=== PATIENT | female | born 1970 | race Caucasian/White ===

== ENCOUNTER 2016-04-21 18:37 | Emergency (ER) | payer MEDICAID ==
[~2016-04-21] VITALS: Ht 172.7 cm; Wt 91.0 kg
[~2016-04-21 18:37] MED LIST: ALBU8.5H INH; AMOX500C2 PO; CYCL-375 PO; HYDR-4246 PO; IBUP-1264 PO; INDO25CA PO; LANS30CA44 PO; TRAM50TA4 PO
--- OUTSIDE RECORDS SUMMARY | 2016-04-21 18:41 | XMS REPORT ---
Author Author Alison Reagan [facility] eClinicalWorks Address Unknown Phone Unavailable Care Team Providers Care Program Schedule Clerk Name Role Phone Alison Reagan CP Unavailable Allergies, Adverse Reactions, Alerts Substance Reaction Event Type seasonal allergies Info Not Available Non Drug Allergy Problems Problem Type Condition Code Onset Dates Condition Status Assessment Unspecified disorder of left middle ear and mastoid H74.92 Active Assessment Acute vaginitis N76.0 Active Problem Overweight 278.02 Active Problem Cervicalgia 723.1 Active Problem Neurodermatitis 691.8 Active Problem Generalized anxiety disorder F41.1 Active Problem Bipolar disorder, unspecified F31.9 Active Problem Restless legs syndrome [RLS] 333.94 Active Problem Ankylosing spondylitis 720.0 Active Medications Medication Code System Code Instructions Start Date End Date Status Dosage Fexofenadine-Pseudoephed ER [facility] [address]-93 180-240 MG Orally Once a day May 18, 2015 July 17, 2015 1 tablet Nasonex [facility] [address]-68 50 MCG/ACT Nasally Once a day May 18, 2015 2 sprays in each nostril Humira [facility] [address]-01 40 MG/0.8ML Subcutaneous 0.8 Sulfasalazine [facility] [address]-16 500 MG Orally BID 2 tabs Famotidine [facility] [address]-22 40 MG Orally Once a day July 16, 2013 1 tablet at bedtime Diflucan [facility] [address]-74 150 MG Orally x1 May 18, 2015 1 tablet Prevacid [facility] [address]-28 30 MG Orally Once a day 1 capsule before a meal Melatonin [facility] [address]-91 3 MG Orally Once a day PRN Jan 19, 2015 1-2 tablets at bedtime as needed with food Diflucan [facility] [address]-56 150 MG Orally Once a day May 18, 2015 1 tablet Folic Acid [facility] [address]-55 dly not defined Geodon [facility] 24983715218 40 Orally at supper and bedtime (or can take both at bedtime to help with sleep) 1 capsule with food Triamcinolone Acetonide [facility] [address]-42 0.5 % Externally Twice a day August 17, 2014 1 application to affected area Amoxicillin [facility] [address]-22 500 MG Orally every 8 hrs 1 capsule Fluticasone Propionate [facility] [address]-90 50 MCG/ACT Nasally twice a day Dec 03, 2012 1 spray in each nostril Lamotrigine [facility] [address]-69 200 MG Orally every day August 25, 2014 one tablet Clonazepam [facility] [address]-01 1 MG Orally Twice a day Jan 13, 2014 1 tablet Requip [facility] [address]-61 2 MG Orally Once a day 1 tablet 1 to 3 hours before bedtime Triamcinolone Acetonide [facility] [address]-98 0.1 % Externally Twice a day for a week then prn July 01, 2014 1 thin application to affected area Flexeril [facility] 22766904491 10 Orally Once a day 1 tablet ProAir HFA [facility] 54584974835 90 Inhalation every 4 hrs 2 puffs as needed Indomethacin [facility] [address]-83 50 MG Orally Twice a day 1 capsule with food Rhinocort Aqua [facility] [address]-02 32 MCG/ACT Nasally Once a day May 18, 2015 1 spray in each nostril Nystatin [facility] 95859077788 100,000 APPLY TO AFFECTED AREA(S) TWO TIMES A DAY UNTIL RASH HAS BEEN GONE 3 DAYS. Lidocaine-Prilocaine [facility] 41955901413 2.5-2.5 Externally q 12h PRN as directed Procedures Procedure Coding System Code Date OFFICE VISIT, EST-LOW COMPLEXITY (15 MIN.) CPT-4 04352 May 18, 2015 Vital Signs Date/Time: May 18, 2015 Temperature 98.2 F Height 68 in Weight 193.4 lbs Blood Pressure Diastolic 67 mm Hg Blood Pressure Systolic 109 mm Hg Cardiac Monitoring Heart Rate 72 /min BMI 29.40 Index Respiratory Rate 18 /min Results No Known Results Summary Purpose eClinicalWorks Submission
--- OUTSIDE RECORDS SUMMARY | 2016-04-21 18:41 | XMS REPORT | Referral Summary ---
Author Author [facility] Organization [facility] Address Unknown Phone Unavailable Care Team Providers Care Automation Driver Name Role Phone Alison Reagan Primary Care Physician [phone] Encounter [facility] [id number] Date(s): 07/30/14 - 07/30/14 [facility] [address] [place] [address] [place] [address]- Discharge Diagnosis: Epicondylitis, lateral, right Discharge Diagnosis: Ankylosing spondylitis Discharge Diagnosis: Encounter for long-term (current) use of high-risk medication Discharge Diagnosis: Chronic back pain Discharge Disposition: -Home or Self Care Attending Physician: Vivienne Flores MD Admitting Physician: Vivienne Flores MD Referring Physician: Alison Reagan NP Vital Signs Most recent to 1 oldest [Reference Range]: Peripheral Pulse 97 bpm Rate [60-100 bpm] (07/30/14 11:08 AM) Blood Pressure 140/98 mmHg [90-140/60-90 mmHg] (07/30/14 11:08 AM) Problem List Condition Effective Dates Status Health Status Informant ANKYLOSING Active SPONDYLITIS(Confirme d) Anxiety(Confirmed) Active ASTHMA(Confirmed) Active Depression(Confirmed Active ) Obesity(Confirmed) Active patient sexually transmitted Active disease(Confirmed) Tobacco Active patient user(Confirmed) Allergies, Adverse Reactions, Alerts Substance Reaction Severity Status Diclofenac Sodium Active Medications baclofen 10 mg oral tablet See Instructions, TAKE ONE TABLET BY MOUTH THREE TIMES A DAY NEEDED FOR MUSCLE SPASM, # 90 tabs, eRx: [facility] #[id number], TAKE ONE TABLET BY MOUTH THREE TIMES A DAY NEEDED FOR MUSCLE SPASM Start Date: 10/16/14 Status: Ordered clonazePAM See Instructions, 1 by oral route daily, 0 Refill(s) Start Date: 01/15/14 Status: Ordered cyclobenzaprine 10 mg oral tablet 1 tabs, Oral, TID, as needed for spasm, # 30 tabs, 0 Refill(s) Start Date: 07/15/13 Status: Ordered Enbrel 25 mg subcutaneous kit 25 mg 1 Each, SubCutaneous, 2x/Wk, # 4 Each, 0 Refill(s), other reason (Rx) Start Date: 11/17/14 Status: Ordered Enbrel Prefilled Syringe mg, SubCutaneous, 2x/Wk, 0 Refill(s) Start Date: 11/17/14 Status: Ordered Flonase 50 mcg/inh nasal spray sprays, Nasal, Daily, 0 Refill(s) Start Date: 01/15/14 Status: Ordered folic acid 1 mg oral tablet See Instructions, TAKE ONE TABLET BY MOUTH DAILY, # 30 tabs, 10 Refill(s), eRx: [facility] #[id number], TAKE ONE TABLET BY MOUTH DAILY Start Date: 10/30/14 Status: Ordered gabapentin 300 mg oral capsule See Instructions, TAKE ONE CAPSULE BY MOUTH FOUR TIMES A DAY, # 120 caps, eRx: [facility] #[id number], TAKE ONE CAPSULE BY MOUTH FOUR TIMES A DAY Start Date: 08/04/14 Status: Ordered hydrOXYzine 25 mg, QID, 0 Refill(s) Start Date: 04/02/14 Status: Ordered IBU 800 mg oral tablet See Instructions, TAKE ONE TABLET BY MOUTH THREE TIMES A DAY NEEDED FOR PAIN - TAKE WITH FOOD OR MILK., # 90 tabs, eRx: [facility] #[id number], TAKE ONE TABLET BY MOUTH THREE TIMES A DAY NEEDED FOR PAIN - TAKE WITH FOOD OR MILK. Start Date: 10/20/14 Status: Ordered lamoTRIgine 150 mg oral tablet tabs, Oral, Bedtime (once a day), 0 Refill(s) Start Date: 06/04/14 Status: Ordered lidocaine-prilocaine 2.5%-2.5% topical cream david, Topical, Once, 0 Refill(s) Start Date: 07/15/13 Status: Ordered meloxicam 15 mg oral tablet See Instructions, TAKE ONE TABLET BY MOUTH DAILY, # 30 tabs, eRx: [facility] #[id number], TAKE ONE TABLET BY MOUTH DAILY Start Date: 08/04/14 Status: Ordered Prevacid 30 mg oral delayed release capsule 1 caps, Oral, Daily, 0 Refill(s) Start Date: 07/15/13 Status: Ordered rOPINIRole 3 mg oral tablet 1 tabs, Oral, TID, 0 Refill(s) Start Date: 07/15/13 Status: Ordered traMADol 50 mg oral tablet See Instructions, 1 tabs Oral every 8 hours. May take 2 at bedtime if needed. No more than 3 per day, # 90 tabs, 1 Refill(s) Start Date: 10/13/14 Status: Ordered Results Hematology Most recent to 1 oldest [Reference Range]: WBC [4.8-10.8 6.8 10*3/uL 10*3/uL] (07/30/14 12:04 PM) RBC [4.00-5.20 4.40 10*6/uL 10*6/uL] (07/30/14 12:04 PM) Hgb [12.0-16.0 12.4 gm/dL gm/dL] (07/30/14 12:04 PM) Hct [37.0-47.0 %] 38.0 % (07/30/14 12:04 PM) MCV [82.0-99.0 fL] 86.4 fL (07/30/14 12:04 PM) MCH [27.0-32.0 pg] 28.2 pg (07/30/14 12:04 PM) MCHC [32.0-36.0 32.6 gm/dL gm/dL] (07/30/14 12:04 PM) RDW [11.5-14.5 %] 15.1 % *HI* (07/30/14 12:04 PM) Platelet [150-400 210 10*3/uL 10*3/uL] (07/30/14 12:04 PM) MPV [8.8-14.8 fL] 12.0 fL (07/30/14 12:04 PM) Immature 0.1 % Granulocytes (07/30/14 12:04 PM) [0.0-1.0 %] Neutrophils [51-75 54 % %] (07/30/14 12:04 PM) Lymphocytes [20-46 32 % %] (07/30/14 12:04 PM) Monocytes [4-11 %] 11 % (07/30/14 12:04 PM) Eosinophils [0-4 %] 2 % (07/30/14 12:04 PM) Basophils [0-2 %] 1 % (07/30/14 12:04 PM) Neutro Absolute 3.69 10*3 [1.90-7.00 10*3] (07/30/14 12:04 PM) Lymph Absolute 2.18 10*3 [0.80-3.30 10*3] (07/30/14 12:04 PM) [place] Absolute 0.74 10*3 [0.30-1.00 10*3] (07/30/14 12:04 PM) Eos Absolute 0.11 10*3 [0.00-0.50 10*3] (07/30/14 12:04 PM) Baso Absolute 0.06 10*3 [0.00-0.20 10*3] (07/30/14:04 PM) Sed Rate [0-23 7 mm/hr mm/hr] (07/30/14: PM) Chemistry Most recent to 1 oldest [Reference Range]: Sodium Lvl [135-144 139 mEq/L mEq/L] (07/30/14: PM) Potassium Lvl 4.0 mEq/L [3.5-5.2 mEq/L] (07/30/14: PM) Chloride [99-111 108 mEq/L mEq/L] (07/30/14: PM) CO2 [22-31 mEq/L] 24 mEq/L (07/30/14: PM) AGAP [3-20] 7 (07/30/14: PM) BUN [7-19 mg/dL] 13 mg/dL (07/30/14: PM) Glucose Lvl [70-99 105 mg/dL mg/dL] *HI* (07/30/14: PM) Creatinine Lvl 0.80 mg/dL [0.57-1.11 mg/dL] (07/30/14: PM) eGFR [>60 mL/min] >60 mL/min 1 (07/30/14: PM) Calcium Lvl 9.4 mg/dL [8.9-10.5 mg/dL] (07/30/14:04 PM) Albumin Lvl [3.5-5.0 4.2 gm/dL gm/dL] (07/30/14 12:04 PM) Total Protein 6.7 gm/dL [6.4-8.3 gm/dL] (07/30/14 12:04 PM) Globulin [1.8-4.0 2.5 gm/dL gm/dL] (07/30/14 12:04 PM) ALT [0-55 U/L] 26 U/L (07/30/14 12:04 PM) AST [5-34 U/L] 17 U/L (07/30/14 12:04 PM) Alk Phos [40-150 77 U/L U/L] (07/30/14 12:04 PM) Bili Total [0.2-1.2 0.6 mg/dL mg/dL] (07/30/14 12:04 PM) 1Result Comment: Multiply eGFR results by 1.21 for race. Immunizations No data available for this section Procedures Procedure Date Related Diagnosis Body Site Arthrocentesis, aspiration and/or injection, 07/30/14 intermediate joint or bursa (eg, temporomandibular, acromioclavicular, wrist, elbow or ankle, olecranon bursa); without ultrasound guidance Social History Social History Type Response Smoking Status Current every day smoker; Tobacco use per day: Pack Assessment and Plan Extracted from: Title: Office Visit Note Author: Vivienne Flores MD Date: 07/30/14 Assessment/Plan 1.Ankylosing spondylitis We will continue the adalimumab. I will have her resume the sulfasalazine. I will check a CRP and sedimentation rate today. I gave her prescription for ibuprofen. Suggest that she try takingthis wuithfood. Ordered: C-Reactive Protein (CRP) CBC w/ Differential Comprehensive Metabolic Panel Sedimentation Rate 2.Epicondylitis, lateral, right I injected this area today and hopefully this will help. 3.Chronic back pain I will obtain a x-ray of her lumbar spine with obliques. She may have radiculopathy that may be contributing to her pain. If she does have abnormalities on x-ray we will obtain nerve conduction studies and see if we can set her up for MRI. Also have her restart the gabapentin. Ordered: XR Spine Lumbosacral Minimum 4 Views 4.Encounter for long-term (current) use of high-risk medication I will check her blood counts liver tests. Orders: ibuprofen, 800 mg 1 tabs, Oral, TID, as needed for pain, with food or milk, # 90 tabs, 2 Refill(s), Pharmacy: [facility] #[id number], 1 tabs Oral TID,PRN:as needed for pain,Instr:with food or milk
--- OUTSIDE RECORDS SUMMARY | 2016-04-21 18:41 | XMS REPORT ---
Author Author Alva Cedeño Organization eClinicalWorks Address Unknown Phone Unavailable Care Team Providers Care Partnership Marketing Manager Name Role Phone Alva Cedeño CP Unavailable Allergies No Known Allergies Problems Problem Type Condition ICD-9 Code Onset Dates Condition Status Problem Attention deficit disorder of childhood without mention of hyperactivity 314.00 Active Problem Cervicalgia 723.1 Active Problem Overweight 278.02 Active Problem Generalized anxiety disorder 300.02 Active Problem Restless legs syndrome [RLS] 333.94 Active Medications Medication Code System Code Instructions Start Date End Date Status Dosage Famotidine [facility] [address]-84 40 MG Orally Once a day July 16, 2013 Active 1 tablet at bedtime Vital Signs Date/Time: July 16, 2013 Height 68 inches Weight 229.8 lbs Temperature 98.9 F Blood Pressure Diastolic 66 mm Hg Blood Pressure Systolic 110 mm Hg Cardiac Monitoring Heart Rate 84 Beats per Minute BMI 34.94 Index Respiratory Rate 18 per Minute Results No Known Results Summary Purpose eClinicalWorks Submission
--- OUTSIDE RECORDS SUMMARY | 2016-04-21 18:41 | XMS REPORT | Continuity of Care Document ---
Author Author [facility] Organization [facility] Address Unknown Phone Unavailable Care Team Providers Care Agriculture Mechanic Name Role Phone Maurice Amanda Primary Care Physician [phone] Source Comments Some departments are not documenting in the electronic medical record. If you do not see the information that you expected, contact Release of Information in the Health Information Management department at [phone] for further assistance in locating additional records.[facility] Active Allergies and Adverse Reactions Not on File Current Medications Not on file Active Problems Not on file Social History Tobacco Use Types Packs/Day Years Used Date Never Assessed Plan of Care Health Maintenance Due Date Last Done Comments Physical (Comprehensive) 1979 Exam Pertussis Vaccine 1983 Tetanus Vaccine 1989 Cervical Cancer Screening 1993 Influenza Vaccine 10/07/2015 Results from Last 3 Months Not on file
--- OUTSIDE RECORDS SUMMARY | 2016-04-21 18:41 | XMS REPORT ---
Author Author Alison Reagan [facility] eClinicalWorks Address Unknown Phone Unavailable Care Team Providers Care Bobbin Handler Name Role Phone Alison Reagan CP Unavailable Allergies No Known Allergies Problems Problem Type Condition ICD-9 Code Onset Dates Condition Status Problem Neurodermatitis 691.8 Active Problem Overweight 278.02 Active Problem Bipolar disorder, unspecified 296.80 Active Problem Restless legs syndrome [RLS] 333.94 Active Problem Ankylosing spondylitis 720.0 Active Problem Cervicalgia 723.1 Active Problem Generalized anxiety disorder 300.02 Active Medications Medication Code System Code Instructions Start Date End Date Status Dosage Loprox [facility] [address]-26 1 % Externally Two times a Week July 27, 2014 Oct 25, 2014 1 application to scalp Diflucan [facility] [address]-31 150 MG Orally Once a day, may repeat in 3 days July 27, 2014 August 01, 2014 1 tablet Results No Known Results Summary Purpose eClinicalWorks Submission
--- OUTSIDE RECORDS SUMMARY | 2016-04-21 18:41 | XMS REPORT ---
Author Author Alison Reagan [facility] eClinicalWorks Address Unknown Phone Unavailable Care Team Providers Care Financial Dealers Name Role Phone Alison Reagan CP Unavailable Allergies No Known Allergies Problems Problem Type Condition Code Onset Dates Condition Status Problem Neurodermatitis 691.8 Active Problem Overweight 278.02 Active Problem Bipolar disorder, unspecified 296.80 Active Problem Restless legs syndrome [RLS] 333.94 Active Problem Ankylosing spondylitis 720.0 Active Problem Cervicalgia 723.1 Active Problem Generalized anxiety disorder 300.02 Active Medications Medication Code System Code Instructions Start Date End Date Status Dosage Lidocaine-Prilocaine [facility] [address]-36 2.5-2.5 % Externally q 12h PRN Feb 12, 2014 as directed Results No Known Results Summary Purpose eClinicalWorks Submission
--- OUTSIDE RECORDS SUMMARY | 2016-04-21 18:41 | XMS REPORT ---
Author Author Zuleyma Flores [facility] eClinicalWorks Address Unknown Phone Unavailable Care Team Providers Care Warp Dyeing Vat Tender Name Role Phone Zuleyma Flores CP Unavailable Allergies No Known Allergies Problems Problem Type Condition ICD-9 Code Onset Dates Condition Status Problem Overweight 278.02 Active Problem Attention deficit disorder of childhood without mention of hyperactivity 314.00 Active Problem Neurodermatitis 691.8 Active Problem Restless legs syndrome [RLS] 333.94 Active Problem Cervicalgia 723.1 Active Problem Generalized anxiety disorder 300.02 Active Medications Medication Code System Code Instructions Start Date End Date Status Dosage BuSpar [facility] [address] 15 MG Orally 1/2 tab BID x 1 wk then one BID Jan 13, 2014 Inactive 1/2 tablet HydrOXYzine Pamoate [facility] [address]-19 25 MG Orally Four times a day Jan Active 1 capsule Vital Signs Date/Time: Dec 03, 2013 Height 68 inches Weight 230 lbs Temperature 97.8 F Blood Pressure Diastolic 70 mm Hg Blood Pressure Systolic 108 mm Hg Cardiac Monitoring Heart Rate 80 Beats per Minute BMI 34.97 Index Respiratory Rate 16 per Minute Results No Known Results Summary Purpose eClinicalWorks Submission
--- OUTSIDE RECORDS SUMMARY | 2016-04-21 18:41 | XMS REPORT ---
Author Author Leandro Will [facility] eClinicalWorks Address Unknown Phone Unavailable Care Team Providers Care Barking Machine Feeder Name Role Phone Leandro Will CP Unavailable Allergies No Known Allergies Problems [...] Instructions Start Date End Date Status Dosage Clonazepam [facility] [address]-44 0.5 MG Orally Twice a day Jan 13, 2014 Active 1 tablet Vital Signs Date/Time: Feb 04, 2014 Height 68 inches Weight 233.75 lbs Temperature 98.4 F Blood Pressure Diastolic 64 mm Hg Blood Pressure Systolic 110 mm Hg Cardiac Monitoring Heart Rate 80 Beats per Minute BMI 35.54 Index Respiratory Rate 20 per Minute Results No Known Results Summary Purpose eClinicalWorks Submission
--- OUTSIDE RECORDS SUMMARY | 2016-04-21 18:41 | XMS REPORT ---
Author Author Lucero Doe Organization eClinicalWorks Address Unknown Phone Unavailable Care Team Providers Care Director Talent Acquisition Name Role Phone Lucero Doe CP Unavailable Allergies No Known Allergies Problems Problem Type Condition Code Onset Dates Condition Status Problem Overweight 278.02 Active Problem Cervicalgia 723.1 Active Problem Neurodermatitis 691.8 Active Problem Generalized anxiety disorder F41.1 Active Problem Bipolar disorder, unspecified F31.9 Active Problem Restless legs syndrome [RLS] 333.94 Active Problem Ankylosing spondylitis 720.0 Active Medications Medication Code System Code Instructions Start Date End Date Status Dosage Clonazepam [facility] [address]-76 1 MG Orally Twice a day Jan 13, 2014 1 tablet Results No Known Results Summary Purpose eClinicalWorks Submission
--- OUTSIDE RECORDS SUMMARY | 2016-04-21 18:41 | XMS REPORT ---
Author Author Alva Cedeño Organization [employer]ClinicalWorks Address Unknown Phone Unavailable Care Team Providers Care Head Athletic Trainer Name Role Phone Alva Cedeño CP Unavailable [...] Instructions Start Date End Date Status Dosage Fluticasone Propionate [facility] [address]-75 50 MCG/ACT Nasally twice a day Dec 03, 2012 Active 1 spray in each nostril Vital Signs Date/Time: Dec 03, 2013 Height 68 inches Weight 230 lbs Temperature 97.8 F Blood Pressure Diastolic 70 mm Hg Blood Pressure Systolic 108 mm Hg Cardiac Monitoring Heart Rate 80 Beats per Minute BMI 34.97 Index Respiratory Rate 16 per Minute Results No Known Results Summary Purpose eClinicalWorks Submission
--- OUTSIDE RECORDS SUMMARY | 2016-04-21 18:42 | XMS REPORT ---
Author Author Zuleyma lFores [facility] eClinicalWorks Address Unknown Phone Unavailable Care Team Providers Care Airplane Dispatcher Name Role Phone Zuleyma Flores CP Unavailable Allergies No Known Allergies Problems Problem Type Condition ICD-9 Code Onset Dates Condition Status Assessment Attention deficit disorder of childhood without mention of hyperactivity 314.00 Active Problem Overweight 278.02 Active Problem Attention deficit disorder of childhood without mention of hyperactivity 314.00 Active Problem Neurodermatitis 691.8 Active Problem Restless legs syndrome [RLS] 333.94 Active Assessment Generalized anxiety disorder 300.02 Active Problem Cervicalgia 723.1 Active Problem Generalized anxiety disorder 300.02 Active Medications Medication Code System Code Instructions Start Date End Date Status Dosage Prevacid [facility] [address]-45 Orally Once a day Active 1 capsule before a meal Clonazepam [facility] [address]-75 0.5 MG Orally Twice a day Jan 13, 2014 Active 1 tablet ProAir HFA [facility] [address]-68 108 (90 Base) MCG/ACT Inhalation every 4 hrs Oct 15, 2013 Active 2 puffs as needed BuSpar [facility] [address] 15 MG Orally 1/2 tab BID x 1 wk then one BID Jan 13, 2014 Active 1/2 tablet Fluticasone Propionate [facility] [address]-75 50 MCG/ACT Nasally twice a day Dec 03, 2012 Active 1 spray in each nostril Requip [facility] [address]-33 2 MG Orally Once a day Active 1 tablet 1 to 3 hours before bedtime Famotidine [facility] [address]-93 40 MG Orally Once a day July 16, 2013 Active 1 tablet at bedtime Enbrel [facility] [address]-56 50 MG Qwk Active not defined Pristiq [facility] [address]-66 50 MG Orally Once a day Active TAKE ONE TABLET BY MOUTH EVERY DAY Lidocaine-Prilocaine [facility] [address]-15 2.5-2.5 % Externally q 12h PRN Feb 12, 2014 Active as directed Tramadol HCl [facility] [address]-33 50 MG Orally every 6 hrs as needed Nov 20, 2013 Feb 20, 2014 Active 1-2 tabs Celebrex [facility] [address]-87 200 MG Orally Once a day Dr Flores Active 1 capsule Folic Acid [facility] [address]-68 Active not defined Procedures Procedure Coding System Code Date OFFICE VISIT, EST-MOD. COMPLEXITY (25 MIN) CPT-4 36626 Jan 13, 2014 Vital Signs Date/Time: Dec 03, 2013 Height 68 inches Weight 230 lbs Temperature 97.8 F Blood Pressure Diastolic 70 mm Hg Blood Pressure Systolic 108 mm Hg Cardiac Monitoring Heart Rate 80 Beats per Minute BMI 34.97 Index Respiratory Rate 16 per Minute Results No Known Results Summary Purpose eClinicalWorks Submission
--- OUTSIDE RECORDS SUMMARY | 2016-04-21 18:42 | XMS REPORT ---
Author Author Lucero Doe Organization eClinicalWorks Address Unknown Phone Unavailable Care Team Providers Care Fiberglass Roving Winder Name Role Phone Lucero Doe CP Unavailable Allergies No Known Allergies Problems Problem Type Condition ICD-9 Code Onset Dates Condition Status Problem Depressive disorder, not elsewhere classified 311 Active Problem Overweight 278.02 Active Problem Attention deficit disorder of childhood without mention of hyperactivity 314.00 Active Problem Neurodermatitis 691.8 Active Problem Restless legs syndrome [RLS] 333.94 Active Problem Ankylosing spondylitis 720.0 Active Problem Cervicalgia 723.1 Active Problem Generalized anxiety disorder 300.02 Active Medications Medication Code System Code Instructions Start Date End Date Status Dosage Clonazepam [facility] [address]-63 1 MG Orally Twice a day Jan 13, 2014 1 tablet Results No Known Results Summary Purpose eClinicalWorks Submission
--- OUTSIDE RECORDS SUMMARY | 2016-04-21 18:42 | XMS REPORT ---
Author Author Lucero Doe Organization eClinicalWorks Address Unknown Phone Unavailable Care Team Providers Care Street Inspector Name Role Phone Lucero Doe CP Unavailable [...] Status Dosage Clonazepam [facility] [address]-63 1 MG Orally Twice a day Jan 13, 2014 1 tablet Results No Known Results Summary Purpose eClinicalWorks Submission
--- OUTSIDE RECORDS SUMMARY | 2016-04-21 18:42 | XMS REPORT ---
Author Author Alison Reagan [facility] eClinicalWorks Address Unknown Phone Unavailable Care Team Providers Care Coal Handler Name Role Phone Alison Reagan CP Unavailable Allergies No Known Allergies Problems Problem Type Condition Code Onset Dates Condition Status Problem Neurodermatitis 691.8 Active Problem Overweight 278.02 Active Problem Bipolar disorder, unspecified 296.80 Active Problem Restless legs syndrome [RLS] 333.94 Active Problem Ankylosing spondylitis 720.0 Active Problem Cervicalgia 723.1 Active Problem Generalized anxiety disorder 300.02 Active Medications No Known Medications Results No Known Results Summary Purpose eClinicalWorks Submission
--- OUTSIDE RECORDS SUMMARY | 2016-04-21 18:42 | XMS REPORT ---
Author Author Lucero Doe [facility] eClinicalWorks Address Unknown Phone Unavailable Care Team Providers Care Research And Development Director Name Role Phone Lucero Doe CP Unavailable Allergies, Adverse Reactions, Alerts Substance Reaction Event Type seasonal allergies Info Not Available Non Drug Allergy Problems Problem Type Condition ICD-9 Code Onset Dates Condition Status Assessment Bipolar disorder, unspecified 296.80 Active Assessment Generalized anxiety disorder 300.02 Active Problem Neurodermatitis 691.8 Active Problem Overweight 278.02 Active Problem Bipolar disorder, unspecified 296.80 Active Problem Restless legs syndrome [RLS] 333.94 Active Problem Ankylosing spondylitis 720.0 Active Problem Cervicalgia 723.1 Active Problem Generalized anxiety disorder 300.02 Active Medications Medication Code System Code Instructions Start Date End Date Status Dosage Indomethacin [facility] [address]-60 50 MG Orally Twice a day 1 capsule with food Geodon [facility] [address]-05 40 MG Orally every evening with food August 14, 2014 1 capsule with food Nystatin [facility] [id number] 100,000 APPLY TO AFFECTED AREA(S) TWO TIMES A DAY UNTIL RASH HAS BEEN GONE 3 DAYS. Sulfasalazine [facility] [address]-09 500 MG Orally BID 2 tabs Drysol [facility] [address]-49 20 % Externally daily Sep 08, 2014 April 06, 2015 as directed Triamcinolone Acetonide [facility] [address]-80 0.1 % Externally Twice a day for a week then prn July 01, 2014 1 thin application to affected area Humira [facility] [address]-08 40 MG/0.8ML Subcutaneous 0.8 ProAir HFA [facility] [address]-78 108 (90 Base) MCG/ACT Inhalation every 4 hrs Oct 15, 2013 2 puffs as needed Prevacid [facility] [address]-05 30 MG Orally Once a day 1 capsule before a meal Fluticasone Propionate [facility] [address]-81 50 MCG/ACT Nasally twice a day Dec 03, 2012 1 spray in each nostril Requip [facility] [address]-68 2 MG Orally Once a day 1 tablet 1 to 3 hours before bedtime Triamcinolone Acetonide [facility] [address]-54 0.5 % Externally Twice a day August 17, 2014 1 application to affected area Famotidine [facility] [address]-89 40 MG Orally Once a day July 16, 2013 1 tablet at bedtime Loprox [facility] [address]-74 1 % Externally Two times a Week July 27, 2014 Oct 25, 2014 1 application to scalp Clonazepam [facility] [address]-42 1 MG Orally Twice a day Jan 13, 2014 1 tablet Lamotrigine [facility] [address]-43 200 MG Orally every day August 25, 2014 one tablet Folic Acid [facility] [address]-03 dly not defined Procedures Procedure Coding System Code Date OFFICE VISIT, EST-MOD. COMPLEXITY (25 MIN) CPT-4 78930 Sep 15, 2014 Vital Signs Date/Time: Sep 15, 2014 Height 68 in Weight 221.8 lbs Temperature 98.7 F Blood Pressure Diastolic 88 mm Hg Blood Pressure Systolic 116 mm Hg Cardiac Monitoring Heart Rate 74 /min BMI 33.72 Index Respiratory Rate 18 /min Results No Known Results Summary Purpose eClinicalWorks Submission
--- OUTSIDE RECORDS SUMMARY | 2016-04-21 18:42 | XMS REPORT ---
Author Taty Michelle Organization eClinicalWorks Address Unknown Phone Unavailable Care Team Providers Care Civil Engineer Land Development Name Role Phone Taty Saucedo CP Unavailable Allergies, Adverse Reactions, Alerts Substance Reaction Event Type seasonal allergies Info Not Available Non Drug Allergy Problems Problem Type Condition Code Onset Dates Condition Status Assessment Pain in unspecified joint M25.50 Active Problem Overweight 278.02 Active Problem Cervicalgia 723.1 Active Problem Neurodermatitis 691.8 Active Problem Generalized anxiety disorder F41.1 Active Problem Bipolar disorder, unspecified F31.9 Active Problem Restless legs syndrome [RLS] 333.94 Active Problem Ankylosing spondylitis 720.0 Active Medications Medication Code System Code Instructions Start Date End Date Status Dosage Prevacid [facility] [address]-38 30 MG Orally Once a day 1 capsule before a meal Fluticasone Propionate [facility] [address]-86 50 MCG/ACT Nasally twice a day Dec 03, 2012 1 spray in each nostril Drysol [facility] [address]-76 20 % Externally Nov 10, 2014 as directed Geodon [facility] [address]-32 40 MG Orally every evening with food August 14, 2014 1 capsule with food Famotidine [facility] 68333707903 40 Orally Once a day 1 tablet at bedtime Sulfasalazine [facility] [address]-01 500 MG Orally BID 2 tabs Triamcinolone Acetonide [facility] 62416256016 0.5 Externally Twice a day 1 application to affected area Nystatin [facility] [id number] 100,000 APPLY TO AFFECTED AREA(S) TWO TIMES A DAY UNTIL RASH HAS BEEN GONE 3 DAYS. Indomethacin [facility] [address]-36 50 MG Orally Twice a day 1 capsule with food Clonazepam [facility] [address]-79 1 MG Orally Twice a day Jan 13, 2014 1 tablet Folic Acid [facility] [address]-48 dly not defined Humira [facility] [address]-00 40 MG/0.8ML Subcutaneous 0.8 Lamotrigine [facility] [address]-18 200 MG Orally every day August 25, 2014 one tablet ProAir HFA [facility] [address]-09 108 (90 Base) MCG/ACT Inhalation every 4 hrs Oct 15, 2013 2 puffs as needed Requip [facility] [address]-50 2 MG Orally Once a day 1 tablet 1 to 3 hours before bedtime Drysol [facility] [address]-82 20 % Externally daily Sep 08, 2014 April 06, 2015 as directed Procedures Procedure Coding System Code Date OFFICE VISIT, EST-LOW COMPLEXITY (10 MIN.) CPT-4 98305 Nov 12, 2014 Vital Signs Date/Time: Nov 12, 2014 Height 68 in Weight 205.12 lbs Temperature 98.5 F Blood Pressure Diastolic 68 mm Hg Blood Pressure Systolic 102 mm Hg Cardiac Monitoring Heart Rate 84 /min BMI 31.18 Index Respiratory Rate 18 /min Results No Known Results Summary Purpose eClinicalWorks Submission
--- OUTSIDE RECORDS SUMMARY | 2016-04-21 18:42 | XMS REPORT ---
Author Author Alison Reagan [facility] eClinicalWorks Address Unknown Phone Unavailable Care Team Providers Care Jet Aircraft Servicer Name Role Phone Alison Reagan CP Unavailable Allergies No Known Allergies Problems Problem Type Condition Code Onset Dates Condition Status Problem Depressive [...] Instructions Start Date End Date Status Dosage Flexeril [facility] [address]-64 10 MG Orally Once a day May 18, 2014 Sep 15, 2014 1 tablet Results No Known Results Summary Purpose eClinicalWorks Submission
--- OUTSIDE RECORDS SUMMARY | 2016-04-21 18:42 | XMS REPORT | Referral Summary ---
Author Author [facility] Organization [facility] Address Unknown Phone Unavailable Care Team Providers Care Gear Repair Supervisor Name Role Phone Alison Reagan Primary Care Physician [phone] Encounter VC Date(s): 06/04/14 - 06/04/14 [facility] [address] [place] [address] EL[place] Mckinney [address]- Discharge Diagnosis: Encounter for long-term (current) use of high-risk medication Discharge Diagnosis: Ankylosing spondylitis Discharge Disposition: 01-Home or Self Care Attending Physician: Vivienne Flores MD Admitting Physician: Vivienne Flores MD Referring Physician: Alison Reagan WATER AND GAS HELPER Vital Signs Most recent to 1 oldest [Reference Range]: Temperature Oral 36.8 degC [35.8-37.3 degC] (06/04/14 8:10 AM) Peripheral Pulse 85 bpm Rate [60-100 bpm] (06/04/14 8:10 AM) Respiratory Rate 16 br/min [14-20 br/min] (06/04/14 8:10 AM) Blood Pressure 135/85 mmHg [90-140/60-90 mmHg] (06/04/14 8:10 AM) Problem List Condition Effective Dates Status [...] FOR MUSCLE SPASM, # 90 tabs, eRx: [facility] #[id number], TAKE ONE TABLET BY MOUTH THREE TIMES [...] DAILY, # 30 tabs, 10 Refill(s), eRx: [facility] #[id number], TAKE ONE TABLET BY MOUTH DAILY Start Date: 10/30/14 Status: Ordered gabapentin 300 mg oral capsule See Instructions, TAKE ONE CAPSULE BY MOUTH FOUR TIMES A DAY, # 120 caps, eRx: [facility] #[id number], TAKE ONE CAPSULE BY MOUTH FOUR TIMES A DAY Start Date: 08/04/14 Status: Ordered hydrOXYzine 25 mg, QID, 0 Refill(s) Start Date: 04/02/14 Status: Ordered IBU 800 mg oral tablet See Instructions, TAKE ONE TABLET BY MOUTH THREE TIMES A DAY NEEDED FOR PAIN - TAKE WITH FOOD OR MILK., # 90 tabs, eRx: [facility] #[id number], TAKE ONE TABLET BY MOUTH THREE TIMES [...] BY MOUTH DAILY, # 30 tabs, eRx: [facility] #[id number], TAKE ONE TABLET BY MOUTH DAILY Start [...] to 1 oldest [Reference Range]: WBC [4.8-10.8 K/uL] 6.8 K/uL (06/04/14 8:47 AM) RBC [4.00-5.20 M/uL] 4.32 M/uL (06/04/14 8:47 AM) Hgb [12.0-16.0 12.1 gm/dL gm/dL] (06/04/14 8:47 AM) Hct [37.0-47.0 %] 37.6 % (06/04/14 8:47 AM) MCV [82.0-99.0 fL] 87.0 fL (06/04/14 8:47 AM) MCH [27.0-32.0 pg] 28.0 pg (06/04/14 8:47 AM) MCHC [32.0-36.0 32.2 gm/dL gm/dL] (06/04/14 8:47 AM) RDW [11.5-14.5 %] 14.2 % (06/04/14 8:47 AM) Platelet [150-400 241 K/uL K/uL] (06/04/14 8:47 AM) MPV [8.8-14.8 fL] 10.9 fL (06/04/14 8:47 AM) Immature 0.1 % Granulocytes (06/04/14 8:47 AM) [0.0-1.0 %] Neutrophils [51-75 54 % %] (06/04/14 8:47 AM) Lymphocytes [20-46 33 % %] (06/04/14 8:47 AM) Monocytes [4-11 %] 9 % (06/04/14 8:47 AM) Eosinophils [0-4 %] 4 % (06/04/14 8:47 AM) Basophils [0-2 %] 1 % (06/04/14 8:47 AM) Neutro Absolute 3.67 THOUS [1.90-7.00 THOUS] (06/04/14 8:47 AM) Lymph Absolute 2.25 THOUS [0.80-3.30 THOUS] (06/04/14 8:47 AM) [place] Absolute 0.64 THOUS [0.30-1.00 THOUS] (06/04/14 8:47 AM) Eos Absolute 0.24 THOUS [0.00-0.50 THOUS] (06/04/14 8:47 AM) Baso Absolute 0.04 THOUS [0.00-0.20 THOUS] (06/04/14 8:47 AM) Chemistry Most recent to 1 oldest [Reference Range]: Sodium Lvl [135-144 140 mEq/L mEq/L] (06/04/14 8:47 AM) Potassium Lvl 4.4 mEq/L [3.5-5.2 mEq/L] (06/04/14 8:47 AM) Chloride [99-111 112 mEq/L mEq/L] *HI* (06/04/14 8:47 AM) CO2 [22-31 mEq/L] 23 mEq/L (06/04/14 8:47 AM) AGAP [3-20] 5 (06/04/14 8:47 AM) BUN [7-19 mg/dL] 16 mg/dL (06/04/14 8:47 AM) Glucose Lvl [70-99 116 mg/dL mg/dL] *HI* (06/04/14:47 AM) Creatinine Lvl 0.74 mg/dL [0.57-1.11 mg/dL] (06/04/14 8:47 AM) eGFR [>60 mL/min] >60 mL/min 1 (06/04/14 8:47 AM) Calcium Lvl 9.2 mg/dL [8.9-10.5 mg/dL] (06/04/14 8:47 AM) Albumin Lvl [3.5-5.0 4.0 gm/dL gm/dL] (06/04/14 8:47 AM) Total Protein 6.6 gm/dL [6.4-8.3 gm/dL] (06/04/14 8:47 AM) Globulin [1.8-4.0 2.6 gm/dL gm/dL] (06/04/14 8:47 AM) ALT [0-55 unit/L] 15 unit/L (06/04/14 8:47 AM) AST [5-34 unit/L] 12 unit/L (06/04/14 8:47 AM) Alk Phos [40-150 87 unit/L unit/L] (06/04/14 8:47 AM) Bili Total [0.2-1.2 0.2 mg/dL mg/dL] (06/04/14 8:47 AM) 1Result Comment: Multiply eGFR results by 1.21 for race. Immunizations No data available for this section Procedures No data available for this section Social History Social History Type Response Smoking Status Current every day smoker; Tobacco use per day: Pack Assessment and Plan Extracted from: Title: Office note Author: Vivienne Flores MD Date: 06/04/14 Assessment/Plan 1.Ankylosing spondylitis We will continue the adalimumab. We will stop the celecoxib and I will start meloxicam. I will start her on leflunomide. I reviewed the potential risk of this medication including immunosuppression with risk of infection malignancy, cytopenias, hepatotoxicity, pulmonary toxicity, neurotoxicity, hypertension. I also discussed that medication is teratogenic. I also believe that there is a component of myofascial pain. We will increase the gabapentin to 300 mg 4 times a day. Ordered: C-Reactive Protein (CRP) CBC w/ Differential Comprehensive Metabolic Panel 2.Encounter for long-term (current) use of high-risk medication I will check her blood counts liver tests today. We will also plan on checking the lab work in 4 weeks. Follow-up in 2 months or sooner if needed.
--- OUTSIDE RECORDS SUMMARY | 2016-04-21 18:42 | XMS REPORT ---
Author Author Alison Reagan [facility] eClinicalWorks Address Unknown Phone Unavailable Care Team Providers Care Order Booker Name Role Phone Alison Reagan CP Unavailable Allergies No Known Allergies Problems Problem Type Condition Code Onset Dates Condition Status Problem Overweight 278.02 Active Problem Cervicalgia 723.1 Active Problem Neurodermatitis 691.8 Active Problem Ankylosing spondylitis 720.0 Active Problem Generalized anxiety disorder 300.02 Active Problem Restless legs syndrome [RLS] 333.94 Active Medications No Known Medications Results No Known Results Summary Purpose eClinicalWorks Submission
--- OUTSIDE RECORDS SUMMARY | 2016-04-21 18:42 | XMS REPORT | Referral Summary ---
Author Author [facility] Organization [facility] Address Unknown Phone Unavailable Care Team Providers Care Vice President Global Digital Marketing Name Role Phone Alison Reagan Primary Care Physician [phone] Encounter VC Date(s): 11/17/14 - 11/17/14 [facility] [address] [place] [address] [place]ckin[place] [address] [place] Discharge Diagnosis: Acute pharyngitis Discharge Disposition: 01-Home or Self Care Attending Physician: Lorenzo Park MD Admitting Physician: Lorenzo Park MD Vital Signs Most recent to 1 oldest [Reference Range]: Temperature Tympanic 37.4 degC [36.6-38.1 degC] (11/17/14 9:32 AM) Peripheral Pulse 91 bpm Rate [60-100 bpm] (11/17/14 9:32 AM) Blood Pressure 106/68 mmHg [90-140/60-90 mmHg] (11/17/14 9:32 AM) SpO2 97 % (11/17/14 9:32 AM) Problem List Condition Effective Dates Status [...] FOR MUSCLE SPASM, # 90 tabs, eRx: [facility] #[id number], TAKE ONE TABLET BY MOUTH THREE TIMES [...] DAILY, # 30 tabs, 10 Refill(s), eRx: [facility] #[id number], TAKE ONE TABLET BY MOUTH DAILY Start Date: 10/30/14 Status: Ordered gabapentin 300 mg oral capsule See Instructions, TAKE ONE CAPSULE BY MOUTH FOUR TIMES A DAY, # 120 caps, eRx: [facility] #[id number], TAKE ONE CAPSULE BY MOUTH FOUR TIMES A DAY Start Date: 08/04/14 Status: Ordered hydrOXYzine 25 mg, QID, 0 Refill(s) Start Date: 04/02/14 Status: Ordered IBU 800 mg oral tablet See Instructions, TAKE ONE TABLET BY MOUTH THREE TIMES A DAY NEEDED FOR PAIN - TAKE WITH FOOD OR MILK., # 90 tabs, eRx: [facility] #[id number], TAKE ONE TABLET BY MOUTH THREE TIMES [...] BY MOUTH DAILY, # 30 tabs, eRx: [facility] #[id number], TAKE ONE TABLET BY MOUTH DAILY Start [...] Refill(s) Start Date: 10/13/14 Status: Ordered Results Microbiology Reports TEST: Group A Strep Culture STATUS: Auth (Verified) BODY SITE: SOURCE: Throat COLLECTED DATE/TIME: 11/17/14 9:40 AM Group A Strep Culture No Group A Strep (Strep pyogenes) isolated Beta hemolytic Streptococcus, group G Predominant amount Organisms are predictably susceptible to Beta-lactam drugs. ORGANISM:Beta Hemolytic Streptococci, Group G Immunizations No data available for this section Procedures No data available for this section Social History Social History Type Response Smoking Status Current every day smoker; Tobacco use per day: Pack Assessment and Plan Extracted from: Title: Office Visit Note Author: Lorenzo Park MD Date: 11/17/14 Assessment/Plan Acute pharyngitis The quick strep test is negative. Considering her immunosuppressed status she will be placed on Zithromax 500 milligrams daily 3 days pending throat culture report. Throat pain in adult She will continue with her usual medication for pain. Orders: azithromycin, 500 mg 1 tabs, Oral, Daily, X 3 days, # 3 tabs, 0 Refill (s), Pharmacy: [facility] #[id number], 1 tabs Oral Daily,x3 days etanercept, 25 mg 1 Each, SubCutaneous, 2x/Wk, # 4 Each, 0 Refill(s), other reason (Rx)
--- OUTSIDE RECORDS SUMMARY | 2016-04-21 18:42 | XMS REPORT ---
Author Author Alison Reagan [facility] eClinicalWorks Address Unknown Phone Unavailable Care Team Providers Care Beauty Culture Teacher Name Role Phone Alison Reagan CP Unavailable [...] Instructions Start Date End Date Status Dosage ProAir HFA [facility] [address]-30 108 (90 Base) MCG/ACT Inhalation every 4 hrs Oct 15, 2013 2 puffs as needed Results No Known Results Summary Purpose eClinicalWorks Submission
--- OUTSIDE RECORDS SUMMARY | 2016-04-21 18:42 | XMS REPORT ---
Author Author Alison Reagan [facility] eClinicalWorks Address Unknown Phone Unavailable Care Team Providers Care Bladder Tier Name Role Phone Alison Reagan CP Unavailable Allergies No Known Allergies Problems Problem Type Condition Code Onset Dates Condition Status Problem Overweight 278.02 Active Problem Cervicalgia 723.1 Active Problem Neurodermatitis 691.8 Active Problem Generalized anxiety disorder F41.1 Active Problem Bipolar disorder, unspecified F31.9 Active Problem Restless legs syndrome [RLS] 333.94 Active Problem Ankylosing spondylitis 720.0 Active Medications No Known Medications Results No Known Results Summary Purpose eClinicalWorks Submission
--- OUTSIDE RECORDS SUMMARY | 2016-04-21 18:42 | XMS REPORT ---
Author Author Lucero Doe [facility] eClinicalWorks Address Unknown Phone Unavailable Care Team Providers Care Mannequin Mold Maker Name Role Phone Lucero Doe CP Unavailable Allergies, Adverse Reactions, Alerts Substance Reaction Event Type seasonal allergies Info Not Available Non Drug Allergy Problems Problem Type Condition Code Onset Dates Condition Status Assessment Depressive disorder, not elsewhere classified 311 Active Assessment Generalized anxiety disorder 300.02 Active Assessment Bipolar disorder, unspecified 296.80 Active Assessment Screening examination for venereal disease V74.5 Active Problem Neurodermatitis 691.8 Active Problem Overweight 278.02 Active Problem Bipolar disorder, unspecified 296.80 Active Problem Restless legs syndrome [RLS] 333.94 Active Problem Ankylosing spondylitis 720.0 Active Problem Cervicalgia 723.1 Active Problem Generalized anxiety disorder 300.02 Active Medications Medication Code System Code Instructions Start Date End Date Status Dosage Requip [facility] [address]-09 2 MG Orally Once a day 1 tablet 1 to 3 hours before bedtime Nystatin [facility] [id number] 100,000 Externally Twice a day until rash has been gone x3d 1 application to affected area ProAir HFA [facility] [address]-04 108 (90 Base) MCG/ACT Inhalation every 4 hrs Oct 15, 2013 2 puffs as needed Clonazepam [facility] [address]-23 1 MG Orally Twice a day Jan 13, 2014 1 tablet Prevacid [facility] [address]-46 Orally Once a day 1 capsule before a meal Folic Acid [facility] [address]-70 dly not defined Gabapentin [facility] [address]-72 300 MG Orally Three times a day 1 capsule Meloxicam [facility] [address]-67 15 MG Orally Once a day 1 tablet Lamotrigine [facility] [address]-56 200 MG Orally once daily May 05, 2014 one tablet at bedtime Humira [facility] [address]-90 40 MG/0.8ML Subcutaneous 0.8 Fluticasone Propionate [facility] [address]-22 50 MCG/ACT Nasally twice a day Dec 03, 2012 1 spray in each nostril Sulfasalazine [facility] [address]-75 500 MG Orally BID 2 tabs Famotidine [facility] [address]-64 40 MG Orally Once a day July 16, 2013 1 tablet at bedtime Procedures Procedure Coding System Code Date OFFICE VISIT, EST-MOD. COMPLEXITY (25 MIN) CPT-4 46845 June 16, 2014 Vital Signs Date/Time: June 16, 2014 Height 68 in Weight 239.4 lbs Temperature 98.7 F Blood Pressure Diastolic 82 mm Hg Blood Pressure Systolic 124 mm Hg Cardiac Monitoring Heart Rate 78 /min BMI 36.40 Index Respiratory Rate 20 /min Results No Known Results Summary Purpose eClinicalWorks Submission
--- OUTSIDE RECORDS SUMMARY | 2016-04-21 18:42 | XMS REPORT ---
Author Author Lucero Doe [facility] eClinicalWorks Address Unknown Phone Unavailable Care Team Providers Care Mid Level Practitioner Name Role Phone Lucero Doe CP Unavailable Allergies No Known Allergies Problems Problem Type Condition Code Onset Dates Condition Status Assessment Screening examination for venereal disease V74.5 Active Problem Overweight 278.02 Active Problem Cervicalgia 723.1 Active Problem Neurodermatitis 691.8 Active Problem Generalized anxiety disorder F41.1 Active Problem Bipolar disorder, unspecified F31.9 Active Problem Restless legs syndrome [RLS] 333.94 Active Problem Ankylosing spondylitis 720.0 Active Medications Medication Code System Code Instructions Start Date End Date Status Dosage Prevacid [facility] [address]-41 Orally Once a day 1 capsule before a meal Meloxicam [facility] [address]-16 15 MG Orally Once a day 1 tablet Fluticasone Propionate [facility] [address]-40 50 MCG/ACT Nasally twice a day Dec 03, 2012 1 spray in each nostril Nystatin [facility] [id number] 100,000 Externally Twice a day until rash has been gone x3d 1 application to affected area Humira [facility] [address]-25 40 MG/0.8ML Subcutaneous 0.8 Lamotrigine [facility] [address]-62 200 MG Orally once daily May 05, 2014 one tablet at bedtime Gabapentin [facility] [address]-89 300 MG Orally Three times a day 1 capsule Famotidine [facility] [address]-04 40 MG Orally Once a day July 16, 2013 1 tablet at bedtime ProAir HFA [facility] [address]-15 108 (90 Base) MCG/ACT Inhalation every 4 hrs Oct 15, 2013 2 puffs as needed Sulfasalazine [facility] [address]-79 500 MG Orally BID 2 tabs Clonazepam [facility] [address]-76 1 MG Orally Twice a day Jan 13, 2014 1 tablet Folic Acid [facility] [address]-84 dly not defined Requip [facility] [address]-13 2 MG Orally Once a day 1 tablet 1 to 3 hours before bedtime Procedures Procedure Coding System Code Date HIV-1/HIV-2, SINGLE ASSAY CPT-4 54507 June 16, 2014 Results No Known Results Summary Purpose eClinicalWorks Submission
--- OUTSIDE RECORDS SUMMARY | 2016-04-21 18:42 | XMS REPORT | Referral Summary ---
Author Organization Unknown Address Unknown Phone Unavailable Care Team Providers Care Wood Tile Installation Helper Name Role Phone Kanika Cedeño Primary Care Physician [phone] Encounter [facility] [id number] Date(s): 04/02/14 - 04/02/14 [facility] [place], Rheumatology [address] [place] [address] [place] [address] Discharge Diagnosis: Ankylosing spondylitis Discharge Diagnosis: Encounter for long-term (current) use of high-risk medication Discharge Diagnosis: Lumbar radiculopathy Discharge Disposition: Home or Self Care Attending Physician: Vivienne Flores MD Admitting Physician: Vivienne Flores MD Vital Signs Most recent to 1 oldest [Reference Range]: Temperature Oral 36.6 degC [35.8-37.3 degC] (04/02/14 7:59 AM) Peripheral Pulse 78 bpm Rate [60-100 bpm] (04/02/14 7:59 AM) Respiratory Rate 16 br/min [14-20 br/min] (04/02/14 7:59 AM) Blood Pressure 136/87 mmHg [90-140/60-90 mmHg] (04/02/14 7:59 AM) Problem List Condition Effective Dates Status Health Status Informant ANKYLOSING Active SPONDYLITIS(Confirme d) Anxiety(Confirmed) Active ASTHMA(Confirmed) Active Depression(Confirmed Active ) Obesity(Confirmed) Active patient Allergies, Adverse Reactions, Alerts Substance Reaction Severity Status Diclofenac Sodium Active Medications baclofen 10 mg oral tablet 1 tabs, Oral, TID, as needed for muscle spasm, # 90 tabs, 1 Refill(s), [facility]acy : [facility] #[id number], 1 tabs Oral TID,PRN:as needed for muscle spasm Start Date: 04/02/14 Status: Ordered CeleBREX 200 mg oral capsule See Instructions, TAKE 1 CAPSULE BY MOUTH ONCE OR TWICE DAILY NEEDED., # 60 caps, eRx: [facility] #[id number], TAKE 1 CAPSULE BY MOUTH ONCE OR TWICE DAILY NEEDED. Special Instructions: TAKE 1 CAPSULE BY MOUTH ONCE OR TWICE DAILY NEEDED. Start Date: 12/15/13 Status: Ordered clonazePAM See Instructions, 1 by oral route daily, 0 Refill(s) Special Instructions: 1 by oral route daily Start Date: 01/15/14 Status: Ordered cyclobenzaprine 10 mg oral tablet 1 tabs, Oral, TID, as needed for spasm, # 30 tabs, 0 Refill(s) Start Date: 07/15/13 Status: Ordered Flonase 50 mcg/inh nasal spray sprays, Nasal, Daily, 0 Refill(s) Start Date: 01/15/14 Status: Ordered folic acid 1 mg oral tablet See Instructions, TAKE ONE TABLET BY MOUTH DAILY, # 30 tabs, 11 Refill(s), eRx: [facility] #[id number], TAKE ONE TABLET BY MOUTH DAILY Special Instructions: TAKE ONE TABLET BY MOUTH DAILY Start Date: 11/05/13 Status: Ordered gabapentin 100 mg oral capsule See Instructions, 1 caps Oral 3 times a day for 3 days then 2 tabs 3 times a day , # 180 caps, 1 Refill(s), Pharmacy: [facility] #[id number], 1 caps Oral 3 times a day for 3 days then 2 tabs 3 times a day Special Instructions: 1 caps Oral 3 times a day for 3 days then 2 tabs 3 times a day Start Date: 04/02/14 Status: Ordered Humira Pen 40 mg/0.8 mL subcutaneous kit 0.8 mL, SubCutaneous, q2wk, # 1 kits, 2 Refill(s), Pharmacy: [facility] # [id number], 0.8 mL SubCutaneous q2wk Start Date: 04/02/14 Status: Ordered hydrOXYzine 25 mg, QID, 0 Refill(s) Start Date: 04/02/14 Status: Ordered lidocaine-prilocaine 2.5%-2.5% topical cream david, Topical, Once, 0 Refill(s) Start Date: 07/15/13 Status: Ordered Prevacid 30 mg oral delayed release capsule 1 caps, Oral, Daily, 0 Refill(s) Start Date: 07/15/13 Status: Ordered Pristiq 50 mg oral tablet, extended release 1.5 tabs, Oral, Daily, 0 Refill(s) Start Date: 07/15/13 Status: Ordered rOPINIRole 3 mg oral tablet 1 tabs, Oral, TID, 0 Refill(s) Start Date: 07/15/13 Status: Ordered sulfaSALAzine 500 mg oral delayed release tablet 2 tabs, Oral, BID, # 120 tabs, 2 Refill(s), Pharmacy: [facility] #[id number], 2 tabs Oral BID Start Date: 02/02/14 Status: Ordered traMADol 50 mg oral tablet See Instructions, 1 tabs Oral every 8 hours. May take 2 at bedtime if needed. No more than 3 per day, # 90 tabs, 2 Refill(s), called to pharmacy (Rx) Special Instructions: 1 tabs Oral every 8 hours. May take 2 at bedtime if needed. No more than 3 per day Start Date: 01/20/14 Status: Ordered Results Hematology Most recent to 1 oldest [Reference Range]: WBC [4.8-10.8 K/uL] 6.1 K/uL (04/02/14 8:34 AM) RBC [4.00-5.20 M/uL] 4.38 M/uL (04/02/14 8:34 AM) Hgb [12.0-16.0 12.2 gm/dL gm/dL] (04/02/14 8:34 AM) Hct [37.0-47.0 %] 37.9 % (04/02/14 8:34 AM) MCV [82.0-99.0 fL] 86.5 fL (04/02/14 8:34 AM) MCH [27.0-32.0 pg] 27.9 pg (04/02/14 8:34 AM) MCHC [32.0-36.0 32.2 gm/dL gm/dL] (04/02/14 8:34 AM) RDW [11.5-14.5 %] 15.0 % *HI* (04/02/14 8:34 AM) Platelet [150-400 231 K/uL K/uL] (04/02/14 8:34 AM) MPV [8.8-14.8 fL] 11.0 fL (04/02/14 8:34 AM) Immature 0.2 % Granulocytes (04/02/14 8:34 AM) [0.0-1.0 %] Neutrophils [51-75 45 % %] *LOW* (04/02/14:34 AM) Lymphocytes [20-46 41 % %] (04/02/14:34 AM) Monocytes [4-11 %] 10 % (04/02/14:34 AM) Eosinophils [0-4 %] 4 % (04/02/14:34 AM) Basophils [0-2 %] 1 % (04/02/14:34 AM) Neutro Absolute 2.70 THOUS [1.90-7.00 THOUS] (04/02/14:34 AM) Lymph Absolute 2.47 THOUS [0.80-3.30 THOUS] (04/02/14:34 AM) [place] Absolute 0.58 THOUS [0.30-1.00 THOUS] (04/02/14:34 AM) Eos Absolute 0.23 THOUS [0.00-0.50 THOUS] (04/02/14:34 AM) Baso Absolute 0.06 THOUS [0.00-0.20 THOUS] (04/02/14:34 AM) Chemistry Most recent to 1 oldest [Reference Range]: Sodium Lvl [135-144 139 mEq/L mEq/L] (04/02/14:34 AM) Potassium Lvl 4.6 mEq/L [3.5-5.2 mEq/L] (04/02/14:34 AM) Chloride [99-111 109 mEq/L mEq/L] (04/02/14:34 AM) CO2 [22-31 mEq/L] 22 mEq/L (04/02/14:34 AM) AGAP [3-20] 8 (04/02/14:34 AM) BUN [7-19 mg/dL] 19 mg/dL (04/02/14:34 AM) Glucose Lvl [70-99 100 mg/dL mg/dL] *HI* (04/02/14:34 AM) Creatinine Lvl 0.71 mg/dL [0.57-1.11 mg/dL] (04/02/14 8:34 AM) eGFR [>60 mL/min] >60 mL/min 1 (04/02/14:34 AM) Calcium Lvl 8.9 mg/dL [8.9-10.5 mg/dL] (04/02/14 8:34 AM) Albumin Lvl [3.5-5.0 3.9 gm/dL gm/dL] (04/02/14 8:34 AM) Total Protein 6.4 gm/dL [6.4-8.3 gm/dL] (04/02/14 8:34 AM) Globulin [1.8-4.0 2.5 gm/dL gm/dL] (04/02/14 8:34 AM) ALT [0-55 unit/L] 18 unit/L (04/02/14 8:34 AM) AST [5-34 unit/L] 13 unit/L (04/02/14 8:34 AM) Alk Phos [40-150 84 unit/L unit/L] (04/02/14 8:34 AM) Bili Total [0.2-1.2 0.3 mg/dL mg/dL] (04/02/14 8:34 AM) 1Result Comment: Multiply eGFR results by 1.21 for race. Immunizations No data available for this section Procedures No data available for this section Social History Social History Type Response Smoking Status Former smoker; Tobacco use per day: Pack Assessment and Plan No data available for this section
--- OUTSIDE RECORDS SUMMARY | 2016-04-21 18:42 | XMS REPORT ---
Author Author Alva Cedeño Organization eClinicalWorks Address Unknown Phone Unavailable Care Team Providers Care Coating And Baking Operator Name Role Phone Alva Cedeño CP Unavailable [...] Instructions Start Date End Date Status Dosage Tramadol HCl [facility] [address]-34 50 MG Orally every 6 hrs as needed Nov 20, 2013 Feb 20, 2014 Active 1-2 tabs Vital Signs Date/Time: Dec 03, 2013 Height 68 inches Weight 230 lbs Temperature 97.8 F Blood Pressure Diastolic 70 mm Hg Blood Pressure Systolic 108 mm Hg Cardiac Monitoring Heart Rate 80 Beats per Minute BMI 34.97 Index Respiratory Rate 16 per Minute Results No Known Results Summary Purpose eClinicalWorks Submission
--- OUTSIDE RECORDS SUMMARY | 2016-04-21 18:42 | XMS REPORT | Referral Summary ---
Author Author [facility] [place] Organization [facility] [place] Address Unknown Phone Unavailable Care Team Providers Care State Game Protector Name Role Phone Alison Reagan Primary Care Physician [phone] Encounter [facility] Date(s): 06/04/14 - 06/04/14 [facility] [place] [address] [place] [address] ELIDIA Mckinney [address]- Discharge Diagnosis: Encounter for long-term (current) use of high-risk medication Discharge Diagnosis: Ankylosing spondylitis Discharge Disposition: 01-Home or Self Care Attending Physician: Vivienne Flores MD Admitting Physician: Vivienne Flores MD Referring Physician: Alison Reagan GOLD CUTTER Vital Signs Most recent to 1 oldest [...] FOR MUSCLE SPASM, # 90 tabs, eRx: [facility] #[id number], TAKE ONE TABLET BY MOUTH THREE TIMES [...] DAILY, # 30 tabs, 10 Refill(s), eRx: [facility] #[id number], TAKE ONE TABLET BY MOUTH DAILY Start Date: 10/30/14 Status: Ordered gabapentin 300 mg oral capsule See Instructions, TAKE ONE CAPSULE BY MOUTH FOUR TIMES A DAY, # 120 caps, eRx: [facility] #[id number], TAKE ONE CAPSULE BY MOUTH FOUR TIMES A DAY Start Date: 08/04/14 Status: Ordered hydrOXYzine 25 mg, QID, 0 Refill(s) Start Date: 04/02/14 Status: Ordered IBU 800 mg oral tablet See Instructions, TAKE ONE TABLET BY MOUTH THREE TIMES A DAY NEEDED FOR PAIN - TAKE WITH FOOD OR MILK., # 90 tabs, eRx: [facility] #[id number], TAKE ONE TABLET BY MOUTH THREE TIMES [...] BY MOUTH DAILY, # 30 tabs, eRx: [facility] #[id number], TAKE ONE TABLET BY MOUTH DAILY Start [...] 2.25 THOUS [0.80-3.30 THOUS] (06/04/14 8:47 AM) [place] Absolute 0.64 THOUS [0.30-1.00 THOUS] (06/04/14 8:47 [...]
--- OUTSIDE RECORDS SUMMARY | 2016-04-21 18:42 | XMS REPORT ---
Author Author Lucero Doe [facility] eClinicalWorks Address Unknown Phone Unavailable Care Team Providers Care Timber Sizer Operator Name Role Phone Lucero Doe CP Unavailable [...] Instructions Start Date End Date Status D[facility] [address]-71 40 MG Orally every evening with food August 14, 2014 1 capsule with food Results No Known Results Summary Purpose eClinicalWorks Submission
--- OUTSIDE RECORDS SUMMARY | 2016-04-21 18:42 | XMS REPORT ---
Author Author Lucero Doe [facility] eClinicalWorks Address Unknown Phone Unavailable Care Team Providers Care Material Handling Technician Name Role Phone Lucero Doe CP Unavailable [...]
--- OUTSIDE RECORDS SUMMARY | 2016-04-21 18:42 | XMS REPORT ---
Author Author Taty Saucedo Organization eClinicalWorks Address Unknown Phone Unavailable Care Team Providers Care Fast Food Sales Assistant Name Role Phone Taty Saucedo CP Unavailable Allergies No Known Allergies Problems [...] Instructions Start Date End Date Status Dosage Azithromycin [facility] [address]-25 250 MG Orally Once a day Feb 09, 2014 Feb 14, 2014 Active 2 tablets on the first day, then 1 tablet daily for 4 days Vital Signs Date/Time: Feb 04, 2014 Height 68 inches Weight 233.75 lbs Temperature 98.4 F Blood Pressure Diastolic 64 mm Hg Blood Pressure Systolic 110 mm Hg Cardiac Monitoring Heart Rate 80 Beats per Minute BMI 35.54 Index Respiratory Rate 20 per Minute Results No Known Results Summary Purpose eClinicalWorks Submission
--- OUTSIDE RECORDS SUMMARY | 2016-04-21 18:43 | XMS REPORT ---
Author Author Alison Reagan [facility] eClinicalWorks Address Unknown Phone Unavailable Care Team Providers Care Railroad Crossing Protection Maintainer Name Role Phone Alison Reagan CP Unavailable [...]
--- OUTSIDE RECORDS SUMMARY | 2016-04-21 18:43 | XMS REPORT ---
Author Author Lucero Doe [facility] eClinicalWorks Address Unknown Phone Unavailable Care Team Providers Care Photographic Plate Maker Name Role Phone Lucero Doe CP Unavailable Allergies, Adverse Reactions, Alerts Substance Reaction Event Type seasonal allergies Info Not Available Non Drug Allergy Problems Problem Type Condition Code Onset Dates Condition Status Assessment Other fpc (current) drug therapy Z79.899 Active Assessment Bipolar disorder, unspecified F31.9 Active Assessment Generalized anxiety disorder F41.1 Active Problem Overweight 278.02 Active Problem Cervicalgia 723.1 Active Problem Neurodermatitis 691.8 Active Problem Generalized anxiety disorder F41.1 Active Problem Bipolar disorder, unspecified F31.9 Active Problem Restless legs syndrome [RLS] 333.94 Active Problem Ankylosing spondylitis 720.0 Active Medications Medication Code System Code Instructions Start Date End Date Status Dosage Geodon [facility] [address]-79 40 MG Orally at supper and bedtime August 14, 2014 1 capsule with food Lamotrigine [facility] [address]-92 200 MG Orally every day August 25, 2014 one tablet Fluticasone Propionate [facility] [address]-85 50 MCG/ACT Nasally twice a day Dec 03, 2012 1 spray in each nostril Indomethacin [facility] [address]-08 50 MG Orally Twice a day 1 capsule with food Prevacid [facility] [address]-97 30 MG Orally Once a day 1 capsule before a meal Clonazepam [facility] [address]-84 1 MG Orally Twice a day Jan 13, 2014 1 tablet Requip [facility] [address]-60 2 MG Orally Once a day 1 tablet 1 to 3 hours before bedtime Lidocaine-Prilocaine [facility] 16939637369 2.5-2.5 Externally q 12h PRN as directed Nystatin [facility] 26274961728 100,000 APPLY TO AFFECTED AREA(S) TWO TIMES A DAY UNTIL RASH HAS BEEN GONE 3 DAYS. ProAir HFA [facility] [address]-72 108 (90 Base) MCG/ACT Inhalation every 4 hrs Oct 15, 2013 2 puffs as needed Triamcinolone Acetonide [facility] [address]-33 0.5 % Externally Twice a day August 17, 2014 1 application to affected area Folic Acid [facility] [address]-22 dly not defined Humira [facility] [address]-50 40 MG/0.8ML Subcutaneous 0.8 Triamcinolone Acetonide [facility] [address]-46 0.1 % Externally Twice a day for a week then prn July 01, 2014 1 thin application to affected area Flexeril [facility] 14343865521 10 Orally Once a day 1 tablet Famotidine [facility] [address]-96 40 MG Orally Once a day July 16, 2013 1 tablet at bedtime Sulfasalazine [facility] [address]-08 500 MG Orally BID 2 tabs Drysol [facility] [address]-28 20 % Externally daily Sep 08, 2014 April 06, 2015 as directed Procedures Procedure Coding System Code Date OFFICE VISIT, EST-MOD. COMPLEXITY (25 MIN) CPT-4 46042 Jan 15, 2015 Vital Signs Date/Time: Jan 15, 2015 Height 68 in Weight 205 lbs Temperature 98.9 F Blood Pressure Diastolic 70 mm Hg Blood Pressure Systolic 114 mm Hg Cardiac Monitoring Heart Rate 86 /min BMI 31.17 Index Respiratory Rate 20 /min Results No Known Results Summary Purpose eClinicalWorks Submission
--- OUTSIDE RECORDS SUMMARY | 2016-04-21 18:43 | XMS REPORT | Referral Summary ---
Author Author [facility] [place] Organization [facility] [place] Address Unknown Phone Unavailable Care Team Providers Care Centrifugal Spinner Name Role Phone Alison Reagan Primary Care Physician [phone] Encounter [facility] Date(s): 06/04/14 - 06/04/14 [facility] [place] [address] [place] [address] [place] Mckin[place] [address]- Discharge Diagnosis: Encounter for long-term (current) use of high-risk medication Discharge Diagnosis: Ankylosing spondylitis Discharge Disposition: 01-Home or Self Care Attending Physician: Vivienne Flores MD Admitting Physician: Vivienne Flores MD Referring Physician: Alison Reagan MINISTER ASSISTANT Vital Signs Most recent to 1 oldest [...] FOR MUSCLE SPASM, # 90 tabs, eRx: [facility] #[id number], TAKE ONE TABLET BY MOUTH THREE TIMES [...] DAILY, # 30 tabs, 10 Refill(s), eRx: [facility] #[id number], TAKE ONE TABLET BY MOUTH DAILY Start Date: 10/30/14 Status: Ordered gabapentin 300 mg oral capsule See Instructions, TAKE ONE CAPSULE BY MOUTH FOUR TIMES A DAY, # 120 caps, eRx: [facility] #[id number], TAKE ONE CAPSULE BY MOUTH FOUR TIMES A DAY Start Date: 08/04/14 Status: Ordered hydrOXYzine 25 mg, QID, 0 Refill(s) Start Date: 04/02/14 Status: Ordered IBU 800 mg oral tablet See Instructions, TAKE ONE TABLET BY MOUTH THREE TIMES A DAY NEEDED FOR PAIN - TAKE WITH FOOD OR MILK., # 90 tabs, eRx: [facility] #[id number], TAKE ONE TABLET BY MOUTH THREE TIMES [...] BY MOUTH DAILY, # 30 tabs, eRx: [facility] #[id number], TAKE ONE TABLET BY MOUTH DAILY Start [...] 2.25 THOUS [0.80-3.30 THOUS] (06/04/14 8:47 AM) [place] Absolute 0.64 THOUS [0.30-1.00 THOUS] (06/04/14 8:47 [...]
--- OUTSIDE RECORDS SUMMARY | 2016-04-21 18:43 | XMS REPORT ---
Author Author Lucero Doe Organization eClinicalWorks Address Unknown Phone Unavailable Care Team Providers Care Eviction Specialist Name Role Phone Lucero Doe CP Unavailable [...] Start Date End Date Status Dosage Clonazepam [facility] [address]-94 1 MG Orally Twice a day Jan 13, 2014 1 tablet Results No Known Results Summary Purpose eClinicalWorks Submission
--- OUTSIDE RECORDS SUMMARY | 2016-04-21 18:43 | XMS REPORT ---
Author Author Lucero Doe [facility] eClinicalWorks Address Unknown Phone Unavailable Care Team Providers Care Drier Take Off Tender Name Role Phone Lucero Doe CP Unavailable [...]
--- OUTSIDE RECORDS SUMMARY | 2016-04-21 18:43 | XMS REPORT ---
Author Author Alva Cedeño Organization eClinicalWorks Address Unknown Phone Unavailable Care Team Providers Care Smash Fixer Name Role Phone Alva Cedeño CP Unavailable Allergies No Known Allergies Problems Problem Type Condition ICD-9 Code Onset Dates Condition Status Problem Overweight 278.02 Active Problem Attention deficit disorder of childhood without mention of hyperactivity 314.00 Active Problem Neurodermatitis 691.8 Active Problem Restless legs syndrome [RLS] 333.94 Active Problem Cervicalgia 723.1 Active Problem Generalized anxiety disorder 300.02 Active Medications No Known Medications Vital Signs Date/Time: July 16, 2013 Height 68 inches Weight 229.8 lbs Temperature 98.9 F Blood Pressure Diastolic 66 mm Hg Blood Pressure Systolic 110 mm Hg Cardiac Monitoring Heart Rate 84 Beats per Minute BMI 34.94 Index Respiratory Rate 18 per Minute Results No Known Results Summary Purpose eClinicalWorks Submission
--- OUTSIDE RECORDS SUMMARY | 2016-04-21 18:43 | XMS REPORT ---
Author Alison Soto [facility] eClinicalWorks Address Unknown Phone Unavailable Care Team Providers Care Management Architect Name Role Phone Alison Reagan CP Unavailable Allergies No Known Allergies Problems Problem Type Condition Code Onset Dates Condition Status Assessment Generalized hyperhidrosis R61 Active Problem Overweight 278.02 Active Problem Cervicalgia 723.1 Active Problem Neurodermatitis 691.8 Active Problem Generalized anxiety disorder F41.1 Active Problem Bipolar disorder, unspecified F31.9 Active Problem Restless legs syndrome [RLS] 333.94 Active Problem Ankylosing spondylitis 720.0 Active Medications Medication Code System Code Instructions Start Date End Date Status Dosage Sulfasalazine [facility] [address]-79 500 MG Orally BID 2 tabs Requip [facility] [address]-60 2 MG Orally Once a day 1 tablet 1 to 3 hours before bedtime Nystatin [facility] 92464927835 100,000 APPLY TO AFFECTED AREA(S) TWO TIMES A DAY UNTIL RASH HAS BEEN GONE 3 DAYS. Indomethacin [facility] [address]-16 50 MG Orally Twice a day 1 capsule with food Famotidine [facility] 98145495965 40 Orally Once a day 1 tablet at bedtime Folic Acid [facility] [address]-19 dly not defined Lamotrigine [facility] [address]-10 200 MG Orally every day August 25, 2014 one tablet Triamcinolone Acetonide [facility] 65457656427 0.5 Externally Twice a day 1 application to affected area Drysol [facility] [address]-87 20 % Externally daily Sep 08, 2014 April 06, 2015 as directed ProAir HFA [facility] [address]-29 108 (90 Base) MCG/ACT Inhalation every 4 hrs Oct 15, 2013 2 puffs as needed Humira [facility] [address]-74 40 MG/0.8ML Subcutaneous 0.8 Drysol [facility] [address]-72 20 % Externally Nov 10, 2014 as directed Geodon [facility] [address]-39 40 MG Orally every evening with food August 14, 2014 1 capsule with food Prevacid [facility] [address]-92 30 MG Orally Once a day 1 capsule before a meal Fluticasone Propionate [facility] [address]-34 50 MCG/ACT Nasally twice a day Dec 03, 2012 1 spray in each nostril Clonazepam [facility] [address]-79 1 MG Orally Twice a day Jan 13, 2014 1 tablet Results No Known Results Summary Purpose eClinicalWorks Submission
--- OUTSIDE RECORDS SUMMARY | 2016-04-21 18:43 | XMS REPORT ---
Author Author Lucero Doe Organization eClinicalWorks Address Unknown Phone Unavailable Care Team Providers Care Restaurant Area Director Name Role Phone Lucero Doe CP [...] Start Date End Date Status Dosage Clonazepam [facility] [address]-02 1 MG Orally Twice a day Jan 13, 2014 1 tablet Results No Known Results Summary Purpose eClinicalWorks Submission
--- OUTSIDE RECORDS SUMMARY | 2016-04-21 18:43 | XMS REPORT ---
Author Author Lucero Doe [facility] eClinicalWorks Address Unknown Phone Unavailable Care Team Providers Care Wiring Technician Name Role Phone Lucero Doe CP [...]
--- OUTSIDE RECORDS SUMMARY | 2016-04-21 18:43 | XMS REPORT ---
Author Author Alison Reagan [facility] eClinicalWorks Address Unknown Phone Unavailable Care Team Providers Care Tile Machine Operator Name Role Phone Alison Reagan CP Unavailable [...] Start Date End Date Status Dosage Famotidine [facility] [address]-26 40 MG Orally Once a day July 16, 2013 1 tablet at bedtime Results No Known Results Summary Purpose eClinicalWorks Submission
--- OUTSIDE RECORDS SUMMARY | 2016-04-21 18:44 | XMS REPORT | Referral Summary ---
Author Author [facility] Organization [facility] Address Unknown Phone Unavailable Care Team Providers Care Aquatic Life Laborer Name Role Phone Alison Reagan Primary Care Physician [phone] Encounter VC Date(s): 11/17/14 - 11/17/14 [facility] [address] [place] [address] ELIDIA Mckinney [id number]- [id number] Discharge Diagnosis: Acute [...] FOR MUSCLE SPASM, # 90 tabs, eRx: [facility] #[id number], TAKE ONE TABLET BY MOUTH THREE TIMES [...] DAILY, # 30 tabs, 10 Refill(s), eRx: [facility] #[id number], TAKE ONE TABLET BY MOUTH DAILY Start Date: 10/30/14 Status: Ordered gabapentin 300 mg oral capsule See Instructions, TAKE ONE CAPSULE BY MOUTH FOUR TIMES A DAY, # 120 caps, eRx: [facility] #[id number], TAKE ONE CAPSULE BY MOUTH FOUR TIMES A DAY Start Date: 08/04/14 Status: Ordered hydrOXYzine 25 mg, QID, 0 Refill(s) Start Date: 04/02/14 Status: Ordered IBU 800 mg oral tablet See Instructions, TAKE ONE TABLET BY MOUTH THREE TIMES A DAY NEEDED FOR PAIN - TAKE WITH FOOD OR MILK., # 90 tabs, eRx: [facility] #[id number], TAKE ONE TABLET BY MOUTH THREE TIMES [...] BY MOUTH DAILY, # 30 tabs, eRx: [facility] #[id number], TAKE ONE TABLET BY MOUTH DAILY Start [...] 1 Refill(s) Start Date: 10/13/14 Status: Ordered Zithromax 500 mg oral tablet 500 mg 1 tabs, Oral, Daily, X 3 days, # 3 tabs, 0 Refill(s), Pharmacy: [facility] #[id number], 1 tabs Oral Daily,x3 days Start Date: 11/17/14 Stop Date: 11/20/14 Status: Ordered Results No data available for this section Immunizations No data available for this section [...] # 3 tabs, 0 Refill (s), Pharmacy: [facility] #[id number], 1 tabs Oral Daily,x3 days etanercept, 25 mg 1 Each, SubCutaneous, 2x/Wk, # 4 Each, 0 Refill(s), other reason (Rx)
--- OUTSIDE RECORDS SUMMARY | 2016-04-21 18:44 | XMS REPORT ---
Author Author Lucero Doe Organization eClinicalWorks Address Unknown Phone Unavailable Care Team Providers Care Supervisor Grips Name Role Phone Lucero Doe CP Unavailable [...] Instructions Start Date End Date Status Dosage Lamotrigine [facility] [address]-97 150 MG Orally once daily May 05, 2014 one tablet at bedtime Results No Known Results Summary Purpose eClinicalWorks Submission
--- OUTSIDE RECORDS SUMMARY | 2016-04-21 18:44 | XMS REPORT ---
Author Author Alison Reagan [facility] eClinicalWorks Address Unknown Phone Unavailable Care Team Providers Care Timber Deadener Name Role Phone Alison Reagan CP Unavailable [...]
--- OUTSIDE RECORDS SUMMARY | 2016-04-21 18:44 | XMS REPORT ---
Author Author Lucero Doe Organization eClinicalWorks Address Unknown Phone Unavailable Care Team Providers Care Rn Clinical Review Name Role Phone Lucero Doe CP Unavailable [...] Start Date End Date Status Dosage Lamotrigine [facility] [address]-93 200 MG Orally every day August 25, 2014 one tablet Results No Known Results Summary Purpose eClinicalWorks Submission
--- OUTSIDE RECORDS SUMMARY | 2016-04-21 18:44 | XMS REPORT ---
Author Author Lucero Doe Organization eClinicalWorks Address Unknown Phone Unavailable Care Team Providers Care Car Dryer Name Role Phone Lucero Doe CP Unavailable Allergies, Adverse Reactions, Alerts Substance Reaction Event Type N.K.D.A. Info Not Available Non Drug Allergy Problems Problem Type Condition ICD-9 Code Onset Dates Condition Status Assessment Attention deficit disorder of childhood without mention of hyperactivity 314.00 Active Problem Depressive disorder, not elsewhere classified 311 Active Assessment Generalized anxiety disorder 300.02 Active Problem Overweight 278.02 Active Problem Attention deficit disorder of childhood without mention of hyperactivity 314.00 Active Problem Neurodermatitis 691.8 Active Problem Restless legs syndrome [RLS] 333.94 Active Problem Ankylosing spondylitis 720.0 Active Problem Cervicalgia 723.1 Active Problem Generalized anxiety disorder 300.02 Active Assessment Overweight 278.02 Active Assessment Cervicalgia 723.1 Active Assessment Depressive disorder, not elsewhere classified 311 Active Assessment Restless legs syndrome [RLS] 333.94 Active Assessment Neurodermatitis 691.8 Active Assessment Ankylosing spondylitis 720.0 Active Medications Medication Code System Code Instructions Start Date End Date Status Dosage Pristiq [facility] [place] [address]-44 50 MG Orally Once a day TAKE ONE TABLET BY MOUTH EVERY DAY Clonazepam [facility] [place] [address]-56 1 MG Orally Twice a day Jan 13, 2014 1 tablet HydrOXYzine Pamoate [facility] [place] [address]-07 25 MG Orally Four times a day Jan 1 capsule Procedures Procedure Coding System Code Date OFFICE VISIT, EST-MOD. COMPLEXITY (25 MIN) CPT-4 84734 Mar 31, 2014 Vital Signs Date/Time: Mar 31, 2014 Height 68 in Weight 238.8 lbs Temperature 98.8 F Blood Pressure Diastolic 64 mm Hg Blood Pressure Systolic 102 mm Hg Cardiac Monitoring Heart Rate 76 /min BMI 36.31 Index Respiratory Rate 20 /min Results No Known Results Summary Purpose eClinicalWorks Submission
--- OUTSIDE RECORDS SUMMARY | 2016-04-21 18:44 | XMS REPORT ---
Author Author Lucero Doe Organization eClinicalWorks Address Unknown Phone Unavailable Care Team Providers Care Environmental Sampling Technician Name Role Phone Lucero Doe CP [...]
--- OUTSIDE RECORDS SUMMARY | 2016-04-21 18:44 | XMS REPORT ---
Author Author Alison Reagan [facility] eClinicalWorks Address Unknown Phone Unavailable Care Team Providers Care Security Intelligence Analyst Name Role Phone Alison Reagan CP Unavailable [...]
--- OUTSIDE RECORDS SUMMARY | 2016-04-21 18:44 | XMS REPORT ---
Author Author Taty Saucedo [facility] eClinicalWorks Address Unknown Phone Unavailable Care Team Providers Care Liquor Merchant Name Role Phone Taty Saucedo CP Unavailable Allergies No Known Allergies Problems Problem Type Condition ICD-9 Code Onset Dates Condition Status Problem Overweight 278.02 Active Problem Attention deficit disorder of childhood without mention of hyperactivity 314.00 Active Problem Neurodermatitis 691.8 Active Problem Restless legs syndrome [RLS] 333.94 Active Assessment Acute nasopharyngitis (common cold) 460 Active Problem Cervicalgia 723.1 Active Problem Generalized anxiety disorder 300.02 Active Medications Medication Code System Code Instructions Start Date End Date Status Dosage Celebrex [facility] [address]-69 200 MG Orally Once a day Dr Flores Active 1 capsule Clonazepam [facility] [address]-62 0.5 MG Orally Twice a day Jan 13, 2014 Active 1 tablet ProAir HFA [facility] [address]-88 108 (90 Base) MCG/ACT Inhalation every 4 hrs Oct 15, 2013 Active 2 puffs as needed Tramadol HCl [facility] [address]-05 50 MG Orally every 6 hrs as needed Nov 20, 2013 Feb 20, 2014 Active 1-2 tabs Prevacid [facility] [address]-95 Orally Once a day Active 1 capsule before a meal Fluticasone Propionate [facility] [address]-01 50 MCG/ACT Nasally twice a day Dec 03, 2012 Active 1 spray in each nostril Pristiq [facility] [address]-26 50 MG Orally Once a day Active TAKE ONE TABLET BY MOUTH EVERY DAY Lidocaine-Prilocaine [facility] [address]-42 2.5-2.5 % Externally q 12h PRN Feb 12, 2014 Active as directed Folic Acid [facility] [address]-84 dly Active not defined Requip [facility] [address]-75 2 MG Orally Once a day Active 1 tablet 1 to 3 hours before bedtime HydrOXYzine Pamoate [facility] [address]-42 25 MG Orally Four times a day Jan Active 1 capsule Enbrel [facility] [address]-10 50 MG Qwk Active not defined Famotidine [facility] [address]-92 40 MG Orally Once a day July 16, 2013 Active 1 tablet at bedtime Procedures Procedure Coding System Code Date OFFICE VISIT, EST-LOW COMPLEXITY (10 MIN.) CPT-4 98269 Feb 04, 2014 Vital Signs Date/Time: Feb 04, 2014 Height 68 inches Weight 233.75 lbs Temperature 98.4 F Blood Pressure Diastolic 64 mm Hg Blood Pressure Systolic 110 mm Hg Cardiac Monitoring Heart Rate 80 Beats per Minute BMI 35.54 Index Respiratory Rate 20 per Minute Results No Known Results Summary Purpose eClinicalWorks Submission
--- OUTSIDE RECORDS SUMMARY | 2016-04-21 18:44 | XMS REPORT ---
Author Author Alva Cedeño Organization eClinicalWorks Address Unknown Phone Unavailable Care Team Providers Care Devops Architect Name Role Phone Alva Cedeño CP Unavailable [...] Start Date End Date Status Dosage Requip [facility] [address]-07 2 MG Orally Once a day Active 1 tablet 1 to 3 hours before bedtime Vital Signs Date/Time: July 16, 2013 Height 68 inches Weight 229.8 lbs Temperature 98.9 F Blood Pressure Diastolic 66 mm Hg Blood Pressure Systolic 110 mm Hg Cardiac Monitoring Heart Rate 84 Beats per Minute BMI 34.94 Index Respiratory Rate 18 per Minute Results No Known Results Summary Purpose eClinicalWorks Submission
--- OUTSIDE RECORDS SUMMARY | 2016-04-21 18:44 | XMS REPORT | Referral Summary ---
Author Organization Unknown Address Unknown Phone Unavailable Care Team Providers Care Pet Ambassador Name Role Phone Alison Reagan Primary Care Physician [phone] Encounter VC Date(s): 06/04/14 - 06/04/14 [facility] [place] Rhe[facility] [address] [place] [address] [place] [address] Discharge Diagnosis: Encounter for long-term (current) use of high-risk medication Discharge Diagnosis: Ankylosing spondylitis Discharge Disposition: Home or Self Care Attending Physician: Vivienne Flores MD Admitting Physician: Vivienne Flores MD Referring Physician: Alison Reagan TANNERY WORKER Vital Signs Most recent to 1 oldest [...] Obesity(Confirmed) Active patient sexually transmitted Active disease(Confirmed) Allergies, Adverse Reactions, Alerts Substance Reaction Severity Status Diclofenac Sodium Active Medications baclofen 10 mg oral tablet See Instructions, TAKE ONE TABLET BY MOUTH THREE TIMES A DAY NEEDED FOR MUSCLE SPASM, # 90 tabs, eRx: [facility] #[id number], TAKE ONE TABLET BY MOUTH THREE TIMES A DAY NEEDED FOR MUSCLE SPASM Special Instructions: TAKE ONE TABLET BY MOUTH THREE TIMES A DAY NEEDED FOR MUSCLE SPASM Start Date: 05/25/14 Status: Ordered clonazePAM See Instructions, 1 by [...] DAILY, # 30 tabs, 11 Refill(s), eRx: [facility] #[id number], TAKE ONE TABLET BY MOUTH DAILY Special Instructions: TAKE ONE TABLET BY MOUTH DAILY Start Date: 11/05/13 Status: Ordered gabapentin 300 mg oral capsule 1 caps, Oral, QID, # 120 caps, 1 Refill(s), Pharmacy: [facility] #[id number], 1 caps Oral QID Start Date: 06/04/14 Status: Ordered Humira Pen 40 mg/0.8 mL subcutaneous kit 0.8 mL, SubCutaneous, q2wk, # 1 kits, 2 Refill(s), Pharmacy: [facility] # [id number], 0.8 mL SubCutaneous q2wk Start Date: 04/02/14 Status: Ordered hydrOXYzine 25 mg, QID, 0 Refill(s) Start Date: 04/02/14 Status: Ordered lamoTRIgine 150 mg oral tablet tabs, Oral, Bedtime (once a day), 0 Refill(s) Start Date: 06/04/14 Status: Ordered leflunomide 20 mg oral tablet 1 tabs, Oral, Daily, # 30 tabs, 1 Refill(s), Pharmacy: [facility] #[id number] , 1 tabs Oral Daily Start Date: 06/04/14 Status: Ordered lidocaine-prilocaine 2.5%-2.5% topical cream david, Topical, Once, 0 Refill(s) Start Date: 07/15/13 Status: Ordered meloxicam 15 mg oral tablet 1 tabs, Oral, Daily, # 30 tabs, 1 Refill(s), Pharmacy: [facility] #[id number] , 1 tabs Oral Daily Start Date: 06/04/14 Status: Ordered Prevacid 30 mg oral delayed [...] 2 tabs, Oral, BID, # 120 tabs, 3 Refill(s), Pharmacy: [facility] [id number] , 2 tabs Oral BID Start Date: 04/28/14 Status: Ordered traMADol 50 mg oral tablet See Instructions, 1 tabs Oral every 8 hours. May take 2 at bedtime if needed. No more than 3 per day, # 90 tabs, 3 Refill(s), called to pharmacy (Rx) Special Instructions: 1 tabs Oral every 8 hours. May take 2 at bedtime if needed. No more than 3 per day Start Date: 04/28/14 Status: Ordered Results Hematology Most recent to [...] (06/04/14 8:47 AM) Immature 0.1 % Granulocytes (06/04/1447 AM) [0.0-1.0 %] Neutrophils [51-75 54 % %] (06/04/14 847 AM) Lymphocytes [20-46 33 % %] (06/04/1447 AM) Monocytes [4-11 %] 9 % (06/04/1447 AM) Eosinophils [0-4 %] 4 % (06/04/14 847 AM) Basophils [0-2 %] 1 % (06/04/14 847 AM) Neutro Absolute 3.67 THOUS [1.90-7.00 THOUS] (06/04/1447 AM) Lymph Absolute 2.25 THOUS [0.80-3.30 THOUS] (06/04/14 8:47 AM) [place] Absolute 0.64 THOUS [0.30-1.00 THOUS] (06/04/14 8:47 AM) Eos Absolute 0.24 THOUS [0.00-0.50 THOUS] (06/04/14 8:47 AM) Baso Absolute 0.04 THOUS [0.00-0.20 THOUS] (06/04/14 847 AM) Chemistry Most recent to 1 oldest [Reference Range]: Sodium Lvl [135-144 140 mEq/L mEq/L] (06/04/14 8:47 AM) Potassium Lvl 4.4 mEq/L [3.5-5.2 mEq/L] (06/04/14:47 AM) Chloride [99-111 112 mEq/L mEq/L] *HI* (06/04/14:47 AM) CO2 [22-31 mEq/L] 23 mEq/L (06/04/1447 AM) AGAP [3-20] 5 (06/04/1447 AM) BUN [7-19 mg/dL] 16 mg/dL (06/04/14 8:47 AM) Glucose Lvl [70-99 116 mg/dL mg/dL] *HI* (06/04/14 8:47 AM) Creatinine Lvl 0.74 mg/dL [0.57-1.11 mg/dL] [...]
--- OUTSIDE RECORDS SUMMARY | 2016-04-21 18:44 | XMS REPORT ---
Author Author Lucero Doe [facility] eClinicalWorks Address Unknown Phone Unavailable Care Team Providers Care Bridge Opener Name Role Phone Lucero Doe CP Unavailable Allergies, Adverse Reactions, Alerts Substance Reaction Event Type seasonal allergies Info Not Available Non Drug Allergy Problems Problem Type Condition Code Onset Dates Condition Status Assessment Generalized anxiety disorder F41.1 Active Assessment Bipolar disorder, unspecified F31.9 Active Problem Overweight 278.02 Active Problem Cervicalgia 723.1 Active Problem Neurodermatitis 691.8 Active Problem Generalized anxiety disorder F41.1 Active Problem Bipolar disorder, unspecified F31.9 Active Problem Restless legs syndrome [RLS] 333.94 Active Problem Ankylosing spondylitis 720.0 Active Medications Medication Code System Code Instructions Start Date End Date Status Dosage Famotidine [facility] [address]-66 40 MG Orally Once a day July 16, 2013 1 tablet at bedtime Requip [facility] [address]-24 2 MG Orally Once a day 1 tablet 1 to 3 hours before bedtime Geodon [facility] [address]-27 40 MG Orally at supper and bedtime August 14, 2014 1 capsule with food Loprox [facility] [address]-93 1 % Externally Two times a Week July 27, 2014 Oct 25, 2014 1 application to scalp Clonazepam [facility] [address]-11 1 MG Orally Twice a day Jan 13, 2014 1 tablet Indomethacin [facility] [address]-45 50 MG Orally Twice a day 1 capsule with food Triamcinolone Acetonide [facility] [address]-76 0.1 % Externally Twice a day for a week then prn July 01, 2014 1 thin application to affected area Nystatin [facility] 63861964150 100,000 APPLY TO AFFECTED AREA(S) TWO TIMES A DAY UNTIL RASH HAS BEEN GONE 3 DAYS. Lamotrigine [facility] [address]-74 200 MG Orally every day August 25, 2014 one tablet Drysol [facility] [address]-51 20 % Externally daily Sep 08, 2014 April 06, 2015 as directed Triamcinolone Acetonide [facility] [address]-80 0.5 % Externally Twice a day August 17, 2014 1 application to affected area Humira [facility] [address]-65 40 MG/0.8ML Subcutaneous 0.8 Folic Acid [facility] [address]-68 dly not defined ProAir HFA [facility] [address]-50 108 (90 Base) MCG/ACT Inhalation every 4 hrs Oct 15, 2013 2 puffs as needed Sulfasalazine [facility] [address]-66 500 MG Orally BID 2 tabs Fluticasone Propionate [facility] [address]-38 50 MCG/ACT Nasally twice a day Dec 03, 2012 1 spray in each nostril Prevacid [facility] [address]-54 30 MG Orally Once a day 1 capsule before a meal Procedures Procedure Coding System Code Date OFFICE VISIT, EST-MOD. COMPLEXITY (25 MIN) CPT-4 97191 Nov 13, 2014 Vital Signs Date/Time: Nov 13, 2014 Height 68 in Weight 206.8 lbs Temperature 98.3 F Blood Pressure Diastolic 68 mm Hg Blood Pressure Systolic 108 mm Hg Cardiac Monitoring Heart Rate 90 /min BMI 31.44 Index Respiratory Rate 18 /min Results No Known Results Summary Purpose eClinicalWorks Submission
--- OUTSIDE RECORDS SUMMARY | 2016-04-21 18:44 | XMS REPORT ---
Author Author Lucero Doe [facility] eClinicalWorks Address Unknown Phone Unavailable Care Team Providers Care Movement Assembler Name Role Phone Lucero Doe CP Unavailable Allergies, Adverse Reactions, Alerts Substance Reaction Event Type N.K.D.A. Info Not Available Non Drug Allergy Problems Problem Type Condition ICD-9 Code Onset Dates Condition Status Assessment Attention deficit disorder of childhood without mention of hyperactivity 314.00 Active Problem Depressive disorder, not elsewhere classified 311 Active Assessment Depressive disorder, not elsewhere classified [...] Instructions Start Date End Date Status Dosage Humira [facility] [address]-97 40 MG/0.8ML Subcutaneous 0.8 Prevacid [facility] [address]-19 Orally Once a day 1 capsule before a meal Fluticasone Propionate [facility] [address]-63 50 MCG/ACT Nasally twice a day Dec 03, 2012 1 spray in each nostril Requip [facility] [address]-42 2 MG Orally Once a day 1 tablet 1 to 3 hours before bedtime Nystatin [facility] [address]-03 580079 UNIT/GM Externally Twice a day until rash has been gone x3d Nov 13, 2012 May 23, 2014 1 application to affected area Celebrex [facility] [address]-30 200 MG Orally Twice a day Dr Flores 1 capsule Famotidine [facility] [address]-87 40 MG Orally Once a day July 16, 2013 1 tablet at bedtime Sulfasalazine [facility] [address]-85 500 MG Orally BID 2 tabs ProAir HFA [facility] [address]-02 108 (90 Base) MCG/ACT Inhalation every 4 hrs Oct 15, 2013 2 puffs as needed Clonazepam [facility] [address]-87 1 MG Orally Twice a day Jan 13, 2014 1 tablet Lamotrigine [facility] [address]-36 25 MG Orally once daily May 05, 2014 one tablet at bedtime for one week, increase by 25mg weekly until reaching 150mg Folic Acid [facility] [address]-32 dly not defined Procedures Procedure Coding System Code Date OFFICE VISIT, EST-MOD. COMPLEXITY (25 MIN) CPT-4 25387 May 05, 2014 Vital Signs Date/Time: May 05, 2014 Height 68 in Weight 238 lbs Temperature 98.1 F Blood Pressure Diastolic 80 mm Hg Blood Pressure Systolic 110 mm Hg Cardiac Monitoring Heart Rate 78 /min BMI 36.18 Index Respiratory Rate 20 /min Results No Known Results Summary Purpose eClinicalWorks Submission
--- OUTSIDE RECORDS SUMMARY | 2016-04-21 18:44 | XMS REPORT ---
Author Author Mary Kate Scott Organization eClinicalWorks Address Unknown Phone Unavailable Care Team Providers Care Strap Making Machine Operator Name Role Phone Mary Kate Scott CP Unavailable Allergies, Adverse Reactions, Alerts Substance Reaction Event Type seasonal allergies Info Not Available Non Drug Allergy Problems Problem Type Condition Code Onset Dates Condition Status Assessment Acute non-recurrent maxillary sinusitis J01.00 Active Assessment Cough R05 Active Problem Overweight 278.02 Active Problem Cervicalgia 723.1 Active Problem Neurodermatitis 691.8 Active Problem Generalized anxiety disorder F41.1 Active Problem Bipolar disorder, unspecified F31.9 Active Problem Restless legs syndrome [RLS] 333.94 Active Problem Ankylosing spondylitis 720.0 Active Medications Medication Code System Code Instructions Start Date End Date Status Dosage Famotidine [facility] [address]-01 40 MG Orally Once a day July 16, 2013 1 tablet at bedtime Triamcinolone Acetonide [facility] [address]-46 0.1 % Externally Twice a day for a week then prn July 01, 2014 1 thin application to affected area Requip [facility] [address]-38 2 MG Orally Once a day 1 tablet 1 to 3 hours before bedtime Indomethacin [facility] [address]-82 50 MG Orally Twice a day 1 capsule with food Rhinocort Aqua [facility] [address]-41 32 MCG/ACT Nasally Once a day May 18, 2015 1 spray in each nostril Amoxicillin-Pot Clavulanate [facility] [address]-54 875-125 MG Orally Twice a day Jan 07, 2016 Jan 17, 2016 1 [address] [facility] [id number] 100,000 APPLY TO AFFECTED AREA(S) TWO TIMES A DAY UNTIL RASH HAS BEEN GONE 3 DAYS. Triamcinolone Acetonide [facility] [address]-28 0.5 % Externally Twice a day August 17, 2014 1 application to affected area Tessalon Perles [facility] [address]-37 100 MG Orally Three times a day Jan 07, 2016 Jan 12, 2016 1 capsule as needed Fluticasone Propionate [facility] [address]-20 50 MCG/ACT Nasally twice a day Dec 03, 2012 1 spray in each nostril ProAir HFA [facility] [id number] 90 INHALE TWO PUFFS INTO LUNGS EVERY 4 HOURS NEEDED Prevacid [facility] [address]-29 30 MG Orally Once a day 1 capsule before a meal Folic Acid [facility] [address]-41 dly not defined Loprox [facility] [id number] 1 Externally Two times a Week 1 application to scalp Flexeril [facility] [id number] 10 TAKE ONE TABLET BY MOUTH DAILY Nasonex [facility] [address]-65 50 MCG/ACT Nasally Once a day May 18, 2015 2 sprays in each nostril Lidocaine-Prilocaine [facility] 12509063436 2.5-2.5 USE EXTERNALLY DIRECTED BY DOCTOR EVERY 12 HOURS NEEDED Procedures Procedure Coding System Code Date OFFICE VISIT, EST-LOW COMPLEXITY (15 MIN.) CPT-4 85395 Jan 07, 2016 Vital Signs Date/Time: Jan 07, 2016 Temperature 98.2 F Height 68 in Weight 187 lbs Blood Pressure Diastolic 88 mm Hg Blood Pressure Systolic 130 mm Hg Cardiac Monitoring Heart Rate 83 /min BMI 28.43 Index Oximetry 97 % Respiratory Rate 16 /min Results No Known Results Summary Purpose eClinicalWorks Submission
--- OUTSIDE RECORDS SUMMARY | 2016-04-21 18:44 | XMS REPORT ---
Author Author Alison Reagan [facility] eClinicalWorks Address Unknown Phone Unavailable Care Team Providers Care Lean Manufacturing Specialist Name Role Phone Alison Reagan CP Unavailable [...]
--- OUTSIDE RECORDS SUMMARY | 2016-04-21 18:44 | XMS REPORT ---
Author Author Alison Reagan [facility] eClinicalWorks Address Unknown Phone Unavailable Care Team Providers Care Manager Strategic Name Role Phone Alison Reagan CP Unavailable [...] Instructions Start Date End Date Status Dosage Drysol [facility] [address]-37 20 % Externally daily Sep 08, 2014 April 06, 2015 as directed Results No Known Results Summary Purpose eClinicalWorks Submission
--- OUTSIDE RECORDS SUMMARY | 2016-04-21 18:44 | XMS REPORT ---
Author Author Alison Reagan [facility] eClinicalWorks Address Unknown Phone Unavailable Care Team Providers Care Trestle Mainternance Laborer Name Role Phone Alison Reagan CP Unavailable [...] Instructions Start Date End Date Status Dosage Nystatin [facility] [address]-53 420299 UNIT/GM Externally Twice a day until rash has been gone x3d Nov 13, 2012 May 23, 2014 1 application to affected area Results No Known Results Summary Purpose eClinicalWorks Submission
--- OUTSIDE RECORDS SUMMARY | 2016-04-21 18:44 | XMS REPORT ---
Author Author Lucero Doe Organization eClinicalWorks Address Unknown Phone Unavailable Care Team Providers Care Power Line Installer Name Role Phone Lucero Doe CP Unavailable [...] Instructions Start Date End Date Status Dosage Melatonin [facility] [address]-83 3 MG Orally Once a day PRN Jan 19, 2015 1-2 tablets at bedtime as needed with food Geodon [facility] [address]-99 40 MG Orally at supper and bedtime (or can take both at bedtime to help with sleep) August 14, 2014 1 capsule with food Results No Known Results Summary Purpose eClinicalWorks Submission
--- OUTSIDE RECORDS SUMMARY | 2016-04-21 18:44 | XMS REPORT | Referral Summary ---
Author Author [facility] Organization [facility] Address Unknown Phone Unavailable Care Team Providers Care Online Merchandising Specialist Name Role Phone Alison Reagan Primary Care Physician [phone] Encounter [facility] [phone] Date(s): 07/30/14 - 07/30/14 [facility] [address] [place] [address] ELIDIA Mckinney [id number]- Discharge Diagnosis: Epicondylitis, lateral, right Discharge Diagnosis: Ankylosing spondylitis Discharge Diagnosis: Encounter for long-term (current) use of high-risk medication Discharge Diagnosis: Chronic back pain Discharge Disposition: -Home or Self Care Attending Physician: Vivienne Flores MD Admitting Physician: Vivienne Florse MD Referring Physician: Alison Reagan NP Vital [...] FOR MUSCLE SPASM, # 90 tabs, eRx: [facility] #[id number], TAKE ONE TABLET BY MOUTH THREE TIMES [...] DAILY, # 30 tabs, 10 Refill(s), eRx: [facility] #[id number], TAKE ONE TABLET BY MOUTH DAILY Start Date: 10/30/14 Status: Ordered gabapentin 300 mg oral capsule See Instructions, TAKE ONE CAPSULE BY MOUTH FOUR TIMES A DAY, # 120 caps, eRx: [facility] #[id number], TAKE ONE CAPSULE BY MOUTH FOUR TIMES A DAY Start Date: 08/04/14 Status: Ordered hydrOXYzine 25 mg, QID, 0 Refill(s) Start Date: 04/02/14 Status: Ordered IBU 800 mg oral tablet See Instructions, TAKE ONE TABLET BY MOUTH THREE TIMES A DAY NEEDED FOR PAIN - TAKE WITH FOOD OR MILK., # 90 tabs, eRx: [facility] #[id number], TAKE ONE TABLET BY MOUTH THREE TIMES [...] BY MOUTH DAILY, # 30 tabs, eRx: [facility] #[id number], TAKE ONE TABLET BY MOUTH DAILY Start [...] 2.18 10*3 [0.80-3.30 10*3] (07/30/14 12:04 PM) [place] Absolute 0.74 10*3 [0.30-1.00 10*3] (07/30/14 12:04 [...] 90 tabs, 2 Refill(s), Pharmacy: [facility] #[id number], 1 tabs Oral TID,PRN:as needed for pain,Instr:with food or milk
--- OUTSIDE RECORDS SUMMARY | 2016-04-21 18:44 | XMS REPORT ---
Author Author Alva Cedeño [facility] eClinicalWorks Address Unknown Phone Unavailable Care Team Providers Care Commercial Loan Reviewer Name Role Phone Alva Cedeño CP Unavailable Allergies No Known Allergies Problems Problem Type Condition ICD-9 Code Onset Dates Condition Status Assessment Ankylosing spondylitis 720.0 Active Problem Overweight 278.02 Active Problem Attention deficit disorder of childhood without mention of hyperactivity 314.00 Active Problem Neurodermatitis 691.8 Active Problem Restless legs syndrome [RLS] 333.94 Active Assessment Neurodermatitis 691.8 Active Problem Cervicalgia 723.1 Active Problem Generalized anxiety disorder 300.02 Active Medications Medication Code System Code Instructions Start Date End Date Status Dosage Tramadol HCl [facility] [address]-63 50 MG Orally every 6 hrs as needed Nov 20, 2013 Dec 20, 2013 Active 1-2 tabs Famotidine [facility] [address]-97 40 MG Orally Once a day July 16, 2013 Active 1 tablet at bedtime Lidocaine-Prilocaine [facility] [address]-88 2.5-2.5 % Externally q 12h PRN Feb 12, 2014 Active as directed Folic Acid [facility] [address]-32 Active not defined Fluticasone Propionate [facility] [address]-80 50 MCG/ACT Nasally twice a day Dec 03, 2012 Active 1 spray in each nostril Celebrex [facility] [address]-70 200 MG Orally Once a day Dr Flores Active 1 capsule ProAir HFA [facility] [address]-16 108 (90 Base) MCG/ACT Inhalation every 4 hrs Oct 15, 2013 Active 2 puffs as needed Pristiq [facility] [address]-72 50 MG Orally Once a day Active TAKE ONE TABLET BY MOUTH EVERY DAY Enbrel [facility] [address]-14 50 MG Qwk Active not defined Requip [facility] [address]-95 2 MG Orally Once a day Active 1 tablet 1 to 3 hours before bedtime Prevacid [facility] [address]-53 Orally Once a day Active 1 capsule before a meal Procedures Procedure Coding System Code Date OFFICE VISIT, EST-LOW COMPLEXITY (15 MIN.) CPT-4 81867 Dec 03, 2013 Vital Signs Date/Time: Dec 03, 2013 Height 68 inches Weight 230 lbs Temperature 97.8 F Blood Pressure Diastolic 70 mm Hg Blood Pressure Systolic 108 mm Hg Cardiac Monitoring Heart Rate 80 Beats per Minute BMI 34.97 Index Respiratory Rate 16 per Minute Results No Known Results Immunizations Vaccine Administration Date Refused Influenza Dec 03, 2013 Summary Purpose eClinicalWorks Submission
[2016-04-21 18:49] VITALS: BP 119/71; PULSE 91; RESP 17; TEMP 97.2; O2SAT 99; Ht 172.7 cm; Wt 91.0 kg
--- OUTSIDE RECORDS SUMMARY | 2016-04-21 19:55 | XMS REPORT | Continuity of Care Document ---
Author Author [facility] Organization [facility] Address Unknown Phone Unavailable Care Team Providers Care Veterinary Milk Specialist Name Role Phone Maurice Amanda Primary Care Physician [phone] Source Comments Some departments are not documenting in the electronic medical record. If you do not see the information that you expected, contact Release of Information in the Health Information Management department at [phone] for further assistance in locating additional records.[facility] Active Allergies and Adverse Reactions Not on [...]
== END 2016-04-21 19:25 | disposition left against medical advice (07) ==
LOC: ED 18:37
DX: Z53.21 Procedure and treatment not carried out due to patient leaving prior to being seen by health care provider (principal)